=== PATIENT | male | born 1940 | race Caucasian/White ===

== ENCOUNTER → 2016-10-01 | Outpatient (CLI) | payer MEDICARE, BC ==
[2016-10-01 09:30] LABS: ALT 33 U/L (21-72); AST 17 U/L (17-59); Cholesterol 157 mg/dL (<200); HDL Cholesterol 39 mg/dL (40-60); Triglycerides 120 mg/dL (<150)
== END | disposition home or self-care (01) ==
LOC: LABWHC1 08:36
PROVIDERS: ATTEND Internal Medicine Interventional Cardiology
DX: E78.2 Mixed hyperlipidemia (principal)
CPT/HCPCS: 36415; 80061; 84450; 84460

== ENCOUNTER 2016-10-18 06:57 | Emergency (ER) | payer MEDICARE, BC ==
[2016-10-18 07:33] VITALS: PULSE 50; RESP 18
--- NOTE | 2016-10-18 08:18 | ED ---
General Adult HPI - General Chief complaint: Recheck/Abnormal Lab/Rx Stated complaint: Hypertension/Dental Pain? Time Seen by Provider: 10/18/16 07:13 Source: patient, RN notes reviewed, old records reviewed Mode of arrival: ambulatory Limitations: no limitations - History of Present Illness Initial comments: This is a 76-year-old male out of the ER for evaluation of elevated blood pressure as well as some dental pain is been dealing with. Patient does have history of blood pressure and did take his blood pressure medications prior to emergency room arrival. Patient denies headache chest pain or shortness of breath. Denies abdominal pain. Patient states he has not been on a pen pain medications and has been on recent antibiotics for dental pain. Patient did recently of a tooth extracted and states he does get chronic dental infections. Patient was anxious this morning when his blood pressure was elevated and he did go take his medications than take his blood pressure again at a family members of nose was elevated again and then decided to come to the hospital. Again otherwise asymptomatic aside from anxiety. - Related Data Home Medications Medication Instructions Recorded Confirmed Aspirin [Adult Low Dose Aspirin EC] 81 mg PO 10/18/16 10/18/16 Atenolol 25 mg PO 10/18/16 Rosuvastatin Calcium 5 mg PO 10/18/16 Previous Rx's Medication Instructions Recorded Clindamycin [Cleocin] 150 mg PO Q6H #28 capsule 10/18/16 Allergies Allergy/AdvReac Type Severity Reaction Status Date / Time No Known Allergies Allergy Verified 10/18/16 07:05 Review of Systems ROS Statement: Those systems with pertinent positive or pertinent negative responses have been documented in the HPI. ROS Other: All systems not noted in ROS Statement are negative. Past Medical History Past Medical History: Hypertension History of Any Multi-Drug Resistant Organisms: None Reported Past Surgical History: Pacemaker Past Psychological History: No Psychological Hx Reported Smoking Status: Former smoker Past Alcohol Use History: None Reported Past Drug Use History: None Reported General Exam Limitations: no limitations General appearance: alert, in no apparent distress Head exam: Present: atraumatic, normocephalic, normal inspection Eye exam: Present: normal appearance, PERRL, EOMI. Absent: scleral icterus, conjunctival injection, periorbital swelling ENT exam: Present: normal exam, mucous membranes moist Neck exam: Present: normal inspection. Absent: tenderness, meningismus, lymphadenopathy Respiratory exam: Present: normal lung sounds bilaterally. Absent: respiratory distress, wheezes, rales, rhonchi, stridor Cardiovascular Exam: Present: regular rate, normal rhythm, normal heart sounds. Absent: systolic murmur, diastolic murmur, rubs, gallop, clicks GI/Abdominal exam: Present: soft, normal bowel sounds. Absent: distended, tenderness, guarding, rebound, rigid Extremities exam: Present: normal inspection, full ROM, normal capillary refill. Absent: tenderness, pedal edema, joint swelling, calf tenderness Back exam: Present: normal inspection Neurological exam: Present: alert, oriented X3, CN II-XII intact Psychiatric exam: Present: normal affect, normal mood Skin exam: Present: warm, dry, intact, normal color. 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 ] Respiratory 20 18 18 Rate Blood Pressure 172/81 150/76 148/76 O2 Sat by Pulse 98 99 98 Oximetry - Reevaluation(s) Reevaluation #1: 10/18/16 09:00 Blood pressure was removed resolved upon presentation to emergency room with no intervention Medical Decision Making - Medical Decision Making 76 noting here for evaluation of hypertension dental infection, will treat with antibiotics, patient's vital signs are now normal and stable and was without complaint, patient can be discharged home Disposition Clinical Impression: Hypertension, Pain due to dental caries Disposition: HOME SELF-CARE Condition: Good Instructions: Hypertension (ED), Toothache (ED), Dental Caries (ED) Prescriptions: Clindamycin [Cleocin] 150 mg PO Q6H #28 capsule Referrals: Baljinder Smiley MD [Primary Care Provider] - 1-2 days
[2016-10-18 08:29] VITALS: BP 148/76; TEMP 98
== END 2016-10-18 08:29 | disposition home or self-care (01) ==
LOC: EC 06:57
DX: K08.89 Other specified disorders of teeth and supporting structures (principal); I10 Essential (primary) hypertension; K02.9 Dental caries, unspecified; Z95.0 Presence of cardiac pacemaker; Z87.891 Personal history of nicotine dependence; Z79.899 Other long term (current) drug therapy; Z79.82 Long term (current) use of aspirin
CPT/HCPCS: 99283

== ENCOUNTER 2017-03-01 19:43 | Emergency (ER) | payer MEDICARE, BC ==
[2017-03-01 19:50] VITALS: RESP 16
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
--- NOTE | 2017-03-01 20:30 | CT ---
EXAMINATION TYPE: CT brain wo con DATE OF EXAM: 03/01/2017 COMPARISON: NONE HISTORY: Fall with head injury today. CT DLP: 990.4 mGycm Automated exposure control for dose reduction was used. FINDINGS: There is some cerebral cortical atrophy. There is no mass effect nor midline shift. There is no sign of intracranial hemorrhage. There is mild hypodensity in the white matter in both posterior parietal lobes. Calvarium is intact. IMPRESSION: CEREBRAL ATROPHY AND MILD CHRONIC SMALL VESSEL ISCHEMIA. NO ACUTE INTRACRANIAL ABNORMALITY.
--- NOTE | 2017-03-01 20:31 | XR ---
EXAMINATION TYPE: XR shoulder complete RT DATE OF EXAM: 03/01/2017 COMPARISON: NONE HISTORY: Shoulder pain TECHNIQUE: 3 views FINDINGS: I see no fracture nor dislocation. Joint spaces are normal. There are no pathologic calcifi cations. IMPRESSION: Negative right shoulder exam
[2017-03-01 20:42] VITALS: BP 149/72; PULSE 90; TEMP 98.4
== END 2017-03-01 20:42 | disposition home or self-care (01) ==
LOC: EC 19:43
DX: S43.401A Unspecified sprain of right shoulder joint, initial encounter (principal); S09.90XA Unspecified injury of head, initial encounter; S80.811A Abrasion, right lower leg, initial encounter; I10 Essential (primary) hypertension; Z87.891 Personal history of nicotine dependence; Z79.82 Long term (current) use of aspirin; Z79.899 Other long term (current) drug therapy; V00.831A Fall from motorized mobility scooter, initial encounter; Y92.410 Unspecified street and highway as the place of occurrence of the external cause
CPT/HCPCS: 70450; 99284

== ENCOUNTER 2018-08-28 21:03 | Emergency (ER) | payer MEDICARE, BC ==
[2018-08-28] MEDS ORDERED: NITROGLYCERIN SL TABS 0.4 MG TAB SUBLINGUAL STA (21:34)
[2018-08-28] MEDS ORDERED: GLUCAGON 1 MG/ML VIAL IVP STA (21:34)
--- NOTE | 2018-08-28 21:37 | ED ---
ENT HPI - General Source: patient, RN notes reviewed, old records reviewed Mode of arrival: ambulatory Limitations: no limitations <China Murphy - Last Filed: 08/29/18 14:03> <Arleth Smith - Last Filed: 08/31/18 02:03> - General Chief complaint: ENT Stated complaint: Can't swallow Time Seen by Provider: 08/28/18 21:21 - History of Present Illness Initial comments: Patient is a 78-year-old male presents today with chief complaint of food bolus with that his esophagus. Patient reports that he was eating fish this evening and felt like it was stuck and complains of some substernal pain. Patient reports that he's tried to drink warm water as well as using cough syrup but he continues to vomit. Patient states that he has no difficulty breathing. He also complains of some sinus congestion. Patient states he was seen a few months ago for similar complaint in his symptoms were improved after he received some medication. He has never had an endoscope team retrieve food before. Patient states on Saturday he is scheduled for barium swallow. ( China Murphy) - Related Data Home Medications Medication Instructions Recorded Confirmed Aspirin [Adult Low Dose Aspirin EC] 81 mg PO DAILY 10/18/16 08/28/18 Atenolol 12.5 mg PO DAILY 10/18/16 08/28/18 Lisinopril 40 mg PO DAILY 03/01/17 08/28/18 Rosuvastatin Calcium [Crestor] 5 mg PO SUMOWEFR 03/01/17 08/28/18 Allergies Allergy/AdvReac Type Severity Reaction Status Date / Time peanut Allergy Unknown Verified 08/28/18 21:34 Review of Systems ROS Other: All systems not noted in ROS Statement are negative. <China Murphy - Last Filed: 08/29/18 14:03> ROS Other: All systems not noted in ROS Statement are negative. <Arleth Smith P - Last Filed: 08/31/18 02:03> ROS Statement: Those systems with pertinent positive or pertinent negative responses have been documented in the HPI. Past Medical History Past Medical History: Hypertension History of Any Multi-Drug Resistant Organisms: None Reported Past Surgical History: Pacemaker Past Psychological History: No Psychological Hx Reported Smoking Status: Former smoker Past Alcohol Use History: None Reported Past Drug Use History: None Reported <hCina Murphy - Last Filed: 08/29/18 14:03> General Exam Limitations: no limitations General appearance: alert, in no apparent distress Head exam: Present: atraumatic, normocephalic, normal inspection Eye exam: Present: normal appearance, PERRL, EOMI. Absent: scleral icterus, conjunctival injection, periorbital swelling ENT exam: Present: normal exam, mucous membranes moist Neck exam: Present: normal inspection. Absent: tenderness, meningismus, lymphadenopathy Respiratory exam: Present: normal lung sounds bilaterally. Absent: respiratory distress, wheezes, rales, rhonchi, stridor Cardiovascular Exam: Present: regular rate, normal rhythm, normal heart sounds. Absent: systolic murmur, diastolic murmur, rubs, gallop, clicks GI/Abdominal exam: Present: soft, normal bowel sounds. Absent: distended, tenderness, guarding, rebound, rigid Extremities exam: Present: normal inspection, full ROM, normal capillary refill. Absent: tenderness, pedal edema, joint swelling, calf tenderness Back exam: Present: normal inspection Neurological exam: Present: alert, oriented X3, CN II-XII intact Psychiatric exam: Present: normal affect, normal mood <China Murphy - Last Filed: 08/29/18 14:03> <Arleth Smith - Last Filed: 08/31/18 02:03> - General Exam Comments Initial Comments: 78-year-old male. Alert and oriented. No significant distress. Patient has a spit bucket next to him. (China Murphy) Course <China Murphy - Last Filed: 08/29/18 14:03> <Arleth Smith P - Last Filed: 08/31/18 02:03> Vital Signs 08/28/18 08/28/18 08/29/18 21:15 23:00 00:33 Temperature 98.5 F Pulse Rate 56 L Respiratory 18 Rate Blood Pressure 153/101 133/84 137/86 O2 Sat by Pulse 99 Oximetry 08/29/18 08/29/18 08/29/18 02:18 03:00 04:00 Temperature Pulse Rate Respiratory 18 16 Rate Blood Pressure 134/76 134/76 120/57 O2 Sat by Pulse 97 96 97 Oximetry 08/29/18 08/29/18 05:00 05:50 Temperature 97.6 F Pulse Rate 64 69 Respiratory 16 16 Rate Blood Pressure 142/72 132/68 O2 Sat by Pulse 97 95 Oximetry - Reevaluation(s) Reevaluation #1: 08/28/18 23:58 Is given oral nitro and glucagon. He continues to not be able to hold his secretions and vomiting. (China Murphy) Medical Decision Making <China Murphy - Last Filed: 08/29/18 14:03> <Arleth Smith - Last Filed: 08/31/18 02:03> - Medical Decision Making 78-year-old male presents return today with chief complaint of unable to tolerate secretions and vomiting after ingesting fish. Patient was food stuck in his throat. At this time Patient was given Nitrol and glucagon. After drinking a carbonated beverage she had no improvement continue to vomit. Dr. Smith discussed the case with Dr. Chinchilla and anesthesia. Patient will be held in the emergency department until 7 AM when anesthesia will come to perform the endoscopy. (China Murphy) I personally saw and examined the patient. I reviewed and agree with the mid- level provider findings including all diagnostic interpretations and treatment plans as written unless otherwise stated. Patient care was discussed with Dr. Chinchilla gastroenterology on-call. He recommended continued observation with the plan for endoscopy at 7 AM. I treated the patient with IV morphine and advised him of the plan. Patient was able to sleep throughout some of his visit when I woke him at 5 AM for reevaluation patient was able to drink water without difficulty at this time he feels his obstruction has passed. I updated Dr. Chinchilla. Patient was discharged home with the plan to have his outpatient barium swallow study completed later today. (Arleth Smith) Disposition <China Murphy - Last Filed: 08/29/18 14:03> Is patient prescribed a controlled substance at d/c from ED?: No Time of Disposition: 05:39 <Arleth Smith - Last Filed: 08/31/18 02:03> Clinical Impression: Food impaction of esophagus Disposition: HOME SELF-CARE Condition: Good Instructions: Esophageal Foreign Body (ED), Chronic Dysphagia (DC) Referrals: Baljinder Smiley MD [Primary Care Provider] - 1-2 days
[2018-08-28] MEDS ORDERED: SODIUM CHLORIDE 0.9% 1,000 ML IV SCH (23:45)
[2018-08-28] MEDS ORDERED: MORPHINE SULFATE 4 MG/ML SYRINGE IVP STA (23:50)
[2018-08-28] MEDS ORDERED: ONDANSETRON 4 MG/2 ML VIAL IVP STA (23:50)
[2018-08-29 05:12] VITALS: RESP 16
[2018-08-29 05:52] VITALS: BP 132/68; PULSE 69; TEMP 97.6
== END 2018-08-29 05:50 | disposition home or self-care (01) ==
LOC: EC 21:03
DX: T18.128A Food in esophagus causing other injury, initial encounter (principal); I10 Essential (primary) hypertension; Z87.891 Personal history of nicotine dependence; Z91.010 Allergy to peanuts; Z79.82 Long term (current) use of aspirin; Z79.899 Other long term (current) drug therapy; Z95.0 Presence of cardiac pacemaker
CPT/HCPCS: 99284; 96374; 96375 ×2; 96361 ×6; J2270; J1610; J2405

== ENCOUNTER → 2018-08-29 | Outpatient (CLI) | payer MEDICARE, BC | END | disposition home or self-care (01) | LOC: RADFLWHC 08:44 | PROVIDERS: ATTEND Family Medicine | DX: Z53.9 Procedure and treatment not carried out, unspecified reason (principal) ==

== ENCOUNTER → 2018-09-03 | Outpatient (CLI) | payer MEDICARE, BC ==
--- NOTE | 2018-09-03 12:43 | FL ---
EXAMINATION TYPE: FL barium swallow DATE OF EXAM: 09/03/2018 CLINICAL HISTORY: Dysphagia, globus sensation, TECHNIQUE: A double contrast esophagram is performed utilizing air and barium. A total of 1 minute and 21 seconds of fluoroscopic time was utilized during procedure. 23 fluoroscopic images were saved. COMPARISON: None FINDINGS: The esophagus shows abnormal motility and delayed emptying into the stomach. Tertiary cont ractions are seen throughout the exam. No evidence of hiatal hernia. There is smooth tapering of the distal esophagus with a low-grade nonobstructive stricture just above the gastroesophageal junction c ontributing to the esophageal dysmotility. Mild gastroesophageal reflux was seen during real time per formance of this study. The examination was terminated prematurely secondary to note of laryngeal aspiration. Penetration cou ld not be injected with cough. Discussion with the patient was had a recommendation of speech therapy consultation and video swallow exam. IMPRESSION: 1. Premature examination termination due to laryngeal aspiration. Recommendation is for speech therap y consultation and video swallow exam. 2. 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 3. Mild gastroesophageal reflux to the level of distal third of the esophagus.
== END | disposition home or self-care (01) ==
LOC: RADFLWHC 10:52
PROVIDERS: ATTEND Family Medicine
DX: K22.4 Dyskinesia of esophagus (principal); K21.9 Gastro-esophageal reflux disease without esophagitis; Z88.8 Allergy status to other drugs, medicaments and biological substances
CPT/HCPCS: 74220

== ENCOUNTER 2018-09-12 11:34 | Emergency (ER) | payer MEDICARE, BC ==
--- NOTE | 2018-09-12 12:02 | ED ---
Back Pain HPI - General Chief Complaint: Back Pain/Injury Stated Complaint: fall Time Seen by Provider: 09/12/18 11:45 Source: patient, RN notes reviewed, old records reviewed Limitations: no limitations - History of Present Illness Initial Comments: This is a 78-year-old male the ER status post fall. Patient to perform denies 3 days ago and complaining of back pain bilateral back pain worse on the left side of his back. Patient denies any other traumatic injury no loss of consciousness no blood thinners. Patient denies any neurological injury no loss of bladder or bowel bowel, able to ambulate but the pain is is not improving. A she is taking Motrin at home with no significant relief. Denies any abdominal pain. Again patient is currently amateur MD Complaint: back pain, back injury, fall -: days(s) (4) Similar Symptoms Previously: No Place: home Radiation: none Severity: moderate Severity scale (1-10): 5 Quality: aching Consistency: constant Improves With: immobilization, medication Worsens With: movement, walking Associated Symptoms: denies other symptoms Treatments Prior to Arrival: cold therapy, heat therapy, NSAIDS - Related Data Home Medications Medication Instructions Recorded Confirmed Aspirin [Adult Low Dose Aspirin EC] 81 mg PO DAILY 10/18/16 08/28/18 Atenolol 12.5 mg PO DAILY 10/18/16 08/28/18 Lisinopril 40 mg PO DAILY 03/01/17 08/28/18 Rosuvastatin Calcium [Crestor] 5 mg PO SUMOWEFR 03/01/17 08/28/18 Allergies Allergy/AdvReac Type Severity Reaction Status Date / Time peanut Allergy Unknown Verified 09/12/18 11:42 Review of Systems ROS Statement: Those systems with pertinent positive or pertinent negative responses have been documented in the HPI. ROS Other: All systems not noted in ROS Statement are negative. Past Medical History Past Medical History: Hypertension History of Any Multi-Drug Resistant Organisms: None Reported Past Surgical History: Pacemaker Past Psychological History: No Psychological Hx Reported Smoking Status: Former smoker Past Alcohol Use History: None Reported Past Drug Use History: None Reported General Exam - General Exam Comments Initial Comments: No significant abnormality or central spinal tenderness noted on exam Limitations: no limitations General appearance: alert, in no apparent distress Head exam: Present: atraumatic, normocephalic, normal inspection Eye exam: Present: normal appearance, PERRL, EOMI. Absent: scleral icterus, conjunctival injection, periorbital swelling ENT exam: Present: normal exam, mucous membranes moist Neck exam: Present: normal inspection. Absent: tenderness, meningismus, lymphadenopathy Respiratory exam: Present: normal lung sounds bilaterally. Absent: respiratory distress, wheezes, rales, rhonchi, stridor Cardiovascular Exam: Present: regular rate, normal rhythm, normal heart sounds. Absent: systolic murmur, diastolic murmur, rubs, gallop, clicks GI/Abdominal exam: Present: soft, normal bowel sounds. Absent: distended, tenderness, guarding, rebound, rigid Extremities exam: Present: normal inspection, full ROM, normal capillary refill. Absent: tenderness, pedal edema, joint swelling, calf tenderness Back exam: Present: normal inspection Neurological exam: Present: alert, oriented X3, CN II-XII intact Psychiatric exam: Present: normal affect, normal mood Skin exam: Present: warm, dry, intact, normal color. Absent: rash Course Vital Signs 09/12/18 11:40 Temperature 97.6 F Pulse Rate 85 Respiratory 20 Rate Blood Pressure 151/90 O2 Sat by Pulse 99 Oximetry - Reevaluation(s) Reevaluation #1: 09/12/18 12:44 Medical records reviewed Reevaluation #2: 09/12/18 12:44 Patient's pain is controlled, is able to actively in emergency room Medical Decision Making - Medical Decision Making 78 male the ER status post fall trip and fall with back contusion. No neurological deficit noted on exam. X-ray negative and patient can be discharged home - Radiology Data Radiology results: report reviewed (X-ray lumbosacral spine is negative for acute disease), image reviewed Disposition Clinical Impression: Mechanical back pain, Back contusion, Fall Disposition: HOME SELF-CARE Condition: Good Instructions: Fall Prevention for Older Adults (ED), Acute Low Back Pain (ED) Is patient prescribed a controlled substance at d/c from ED?: No Referrals: Baljinder Smiley MD [Primary Care Provider] - 1-2 days
--- NOTE | 2018-09-12 12:18 | XR ---
EXAMINATION TYPE: XR lumbosacral spine min 4V DATE OF EXAM: 09/12/2018 COMPARISON: None HISTORY: Pain after fall TECHNIQUE: Five-view lumbar spine FINDINGS: There 5 lumbar-type vertebral bodies. Pedicles are intact. Facet degenerative changes are p resent greatest L4-5. Disc heights are preserved. Vertebral body heights are preserved. Minimal spond ylosis is in the lower lumbar spine. Note is made of prior bowel surgery in left upper quadrant. IMPRESSION: 1. No suspicious acute osseous abnormality lumbar spine
[2018-09-12] MEDS ORDERED: Acetaminophen-Codeine 300-30mg TAB PO STA ×2 (12:22→13:08)
[2018-09-12] MEDS ORDERED: ACET/COD 300 MG/30 MG STARTER PACK 6 TAB BTL PO STA (12:22)
[2018-09-12 13:26] VITALS: BP 149/89; PULSE 53; RESP 18; TEMP 98.2
== END 2018-09-12 13:40 | disposition home or self-care (01) ==
LOC: EC 11:34
DX: S30.0XXA Contusion of lower back and pelvis, initial encounter (principal); I10 Essential (primary) hypertension; Z87.891 Personal history of nicotine dependence; Z53.8 Procedure and treatment not carried out for other reasons; Z79.82 Long term (current) use of aspirin; Z79.899 Other long term (current) drug therapy; Z91.010 Allergy to peanuts; Z95.0 Presence of cardiac pacemaker; W01.0XXA Fall on same level from slipping, tripping and stumbling without subsequent striking against object, initial encounter; Y92.009 Unspecified place in unspecified non-institutional (private) residence as the place of occurrence of the external cause
CPT/HCPCS: 72110; 99284

== ENCOUNTER → 2019-07-24 | Outpatient (CLI) | payer MEDICARE, BC ==
--- NOTE | 2019-07-24 12:34 | US ---
EXAMINATION TYPE: US kidneys/renal and bladder DATE OF EXAM: 07/24/2019 COMPARISON: NONE CLINICAL HISTORY: R32 Urinary incontinence. EXAM MEASUREMENTS: Right Kidney: 10.3 x 5.0 x 4.8 cm Left Kidney: 9.1 x 4.7 x 4.1 cm Post Void Residual Volume: 53.1 mL Right Kidney: thinned cortex Left Kidney: thinned cortex Bladder: wnl Bilateral Jets seen: Yes Normal Post Void Residual: 53.1 ml There is no evidence for hydronephrosis at this point in time. Cortical thinning and increased cortic al echogenicity is present bilaterally. No nephrolithiasis is seen. No masses are identified. The u rinary bladder is satisfactorily distended. Prominent adjacent prostate noted image 37. Bilateral ur eteral jets are seen. After voiding residual urine is present with calculated volume just over 50 cc. IMPRESSION: Suspect BPH causing outlet obstruction as there is abnormal post void residual. Findings consistent with chronic medical renal disease noted.
== END | disposition home or self-care (01) ==
LOC: RADUSWWP 12:03
PROVIDERS: ATTEND Family Medicine
DX: R32 Unspecified urinary incontinence (principal); Z88.8 Allergy status to other drugs, medicaments and biological substances
CPT/HCPCS: 76770

== ENCOUNTER 2020-01-15 01:59 | Emergency (ER) | payer BC, MEDICARE ==
[2020-01-15] MEDS ORDERED: SODIUM CHLORIDE 0.9% 500 ML 500 ML IV STA (02:21)
--- NOTE | 2020-01-15 02:36 | ED ---
General Adult HPI - General Chief complaint: Neuro Symptoms/Deficit Stated complaint: Neuro problems Time Seen by Provider: 01/15/20 02:08 Source: patient, family, RN notes reviewed, old records reviewed Mode of arrival: ambulatory Limitations: no limitations - History of Present Illness Initial comments: 79-year-old male presents emergency Department with chief complaint of jerking movements of his head. He states he had 2 episodes where his head seemed to jerk to the side. Each episode lasting just seconds. No pain associated with movement. Denies headache. Denies focal numbness or weakness. Denies chest pain or dyspnea. Denies fever or chills. Denies abdominal pain nausea or vomiting. He states he is quite active and was cutting the lawn today. He states he ate and drank normally. No other complaints. - Related Data Home Medications Medication Instructions Recorded Confirmed Aspirin [Adult Low Dose Aspirin EC] 81 mg PO DAILY 10/18/16 09/12/18 Atenolol 12.5 mg PO DAILY 10/18/16 09/12/18 Lisinopril 40 mg PO DAILY 03/01/17 09/12/18 Rosuvastatin Calcium [Crestor] 5 mg PO SUMOWEFR 03/01/17 09/12/18 Ibuprofen [Motrin Ib] 600 mg PO DAILY 09/12/18 09/12/18 Allergies Allergy/AdvReac Type Severity Reaction Status Date / Time peanut Allergy Unknown Verified 01/15/20 02:11 Review of Systems ROS Statement: Those systems with pertinent positive or pertinent negative responses have been documented in the HPI. ROS Other: All systems not noted in ROS Statement are negative. Past Medical History Past Medical History: Hypertension History of Any Multi-Drug Resistant Organisms: None Reported Past Surgical History: Bowel Resection, Pacemaker Past Psychological History: No Psychological Hx Reported Smoking Status: Former smoker Past Alcohol Use History: None Reported Past Drug Use History: None Reported General Exam Limitations: no limitations General appearance: alert, in no apparent distress Head exam: Present: atraumatic, normocephalic Eye exam: Present: normal appearance, PERRL ENT exam: Present: normal exam Neck exam: Present: normal inspection. Absent: tenderness, meningismus Respiratory exam: Present: normal lung sounds bilaterally. Absent: respiratory distress, wheezes Cardiovascular Exam: Present: regular rate, normal rhythm GI/Abdominal exam: Present: soft. Absent: distended, tenderness, guarding, rebound Extremities exam: Present: normal inspection, normal capillary refill. Absent: pedal edema, calf tenderness Neurological exam: Present: alert, oriented X3, CN II-XII intact, normal gait. Absent: motor sensory deficit Psychiatric exam: Present: normal affect, normal mood Skin exam: Present: warm, dry, intact. Absent: cyanosis, diaphoretic Course Vital Signs 01/15/20 01/15/20 01/15/20 02:03 02:15 02:30 Temperature 97.9 F Pulse Rate 58 L 51 L Respiratory 20 17 16 Rate Blood Pressure 183/92 164/77 O2 Sat by Pulse 100 100 Oximetry 01/15/20 03:00 Temperature Pulse Rate 60 Respiratory 17 Rate Blood Pressure O2 Sat by Pulse Oximetry EKG Findings - EKG Comments: EKG Findings:: EKG: Intermittent pacer spikes, first-degree AV block, LVH, no ST segment elevation, ventricular rate of 60, IL interval 234, QRS duration 76, QTC 422. Repeat EKG obtained at 0 344, atrial paced rhythm with prolonged AV conduction, rate of 58, IL interval prolonged at 258, QRS duration 76, QTC 428, no ST segment elevation. Medical Decision Making - Medical Decision Making 79-year-old male presenting with 2 episodes of head trauma or cutting. Initial blood pressure is elevated otherwise stable vitals. He has a nonfocal neurologic exam. He has a normal CBC with the exception of thrombocytopenia platelets are 100. He has normal electrolytes. Chest x-ray performed negative for acute cardiopulmonary disease. Head CT is negative for intracranial hemorrhage or mass effect. Blood pressure is down trending without treatment in the emergency department. He's feeling good with no further episodes on reevaluation. He does have good outpatient follow-up and will monitor symptoms, he will return with worsening or changing symptoms. - Lab Data Result diagrams: 01/15/20 02:32 01/15/20 02:32 Lab Results 01/15/20 01/15/20 01/15/20 Range/Units 02:32 02:32 02:32 WBC 5.5 (3.8-10.6) k/uL RBC 4.81 (4.30-5.90) m/uL Hgb 14.3 (13.0-17.5) gm/dL Hct 45.5 (39.0-53.0) % MCV 94.4 (80.0-100.0) fL MCH 29.6 (25.0-35.0) pg MCHC 31.4 (31.0-37.0) g/dL RDW 13.1 (11.5-15.5) % Plt Count 103 L (150-450) k/uL Neutrophils % 60 % Lymphocytes % 26 % Monocytes % 7 % Eosinophils % 5 % Basophils % 0 % Neutrophils # 3.3 (1.3-7.7) k/uL Lymphocytes # 1.4 (1.0-4.8) k/uL Monocytes # 0.4 (0-1.0) k/uL Eosinophils # 0.3 (0-0.7) k/uL Basophils # 0.0 (0-0.2) k/uL PT 9.9 (9.0-12.0) sec INR 1.0 (<1.2) APTT 19.3 L (22.0-30.0) sec Sodium 142 (137-145) mmol/L Potassium 4.6 (3.5-5.1) mmol/L Chloride 106 (98-107) mmol/L Carbon Dioxide 25 (22-30) mmol/L Anion Gap 11 mmol/L BUN 26 H (9-20) mg/dL Creatinine 1.25 (0.66-1.25) mg/dL Est GFR (CKD-EPI)AfAm 64 (>60 ml/min/1.73 sqM) Est GFR (CKD-EPI)NonAf 55 (>60 ml/min/1.73 sqM) Glucose 134 H (74-99) mg/dL Calcium 9.9 (8.4-10.2) mg/dL Magnesium 2.3 (1.6-2.3) mg/dL Total Bilirubin 0.5 (0.2-1.3) mg/dL AST 27 (17-59) U/L ALT 18 (4-49) U/L Alkaline Phosphatase 66 (38-126) U/L Total Protein 7.8 (6.3-8.2) g/dL Albumin 4.8 (3.5-5.0) g/dL Disposition Clinical Impression: Myoclonic jerking Disposition: HOME SELF-CARE Condition: Good Instructions (If sedation given, give patient instructions): Spasmodic Torticollis (ED) Is patient prescribed a controlled substance at d/c from ED?: No Referrals: Baljinder Smiley MD [Primary Care Provider] - 1-2 days Time of Disposition: 03:47
[2020-01-15 02:46] LABS: Basophils % (A) 0 %; Eosinophils # (A) 0.3 k/uL (0-0.7); Eosinophils % (A) 5 %; HCT 45.5 % (39.0-53.0); HGB 14.3 gm/dL (13.0-17.5); Lymphocytes # (A) 1.4 k/uL (1.0-4.8); Lymphocytes % (A) 26 %; MCH 29.6 pg (25.0-35.0); MCHC 31.4 g/dL (31.0-37.0); MCV 94.4 fL (80.0-100.0); Mean Platelet Volume 10.8; Monocytes # (A) 0.4 k/uL (0-1.0); Monocytes % (A) 7 %; Neutrophils # (A) 3.3 k/uL (1.3-7.7); Neutrophils % (A) 60 %; Platelet Count 103 k/uL (150-450); RBC 4.81 m/uL (4.30-5.90); RDW 13.1 % (11.5-15.5); WBC 5.5 k/uL (3.8-10.6)
[2020-01-15 02:52] LABS: Albumin 4.8 g/dL (3.5-5.0); Calcium 9.9 mg/dL (8.4-10.2); Total Bilirubin 0.5 mg/dL (0.2-1.3); Total Protein 7.8 g/dL (6.3-8.2)
[2020-01-15 02:57] LABS: Magnesium 2.3 mg/dL (1.6-2.3); Potassium 4.6 mmol/L (3.5-5.1)
[2020-01-15 02:58] LABS: Prothrombin Time 9.9 sec (9.0-12.0)
[2020-01-15 02:59] LABS: Partial Thromboplastin Time 19.3 sec (22.0-30.0)
--- NOTE | 2020-01-15 03:18 | CT ---
EXAMINATION TYPE: CT brain wo con DATE OF EXAM: 01/15/2020 COMPARISON: 03/01/2017 HISTORY: AMS CT DLP: 1080.4 mGycm Automated exposure control for dose reduction was used. Ventricles have normal size. There is no mass effect nor midline shift. There is no sign of intracran ial hemorrhage. The calvarium is intact. There is mild cerebral atrophy. IMPRESSION: Mild atrophy. No acute intracranial abnormality. No change.
--- NOTE | 2020-01-15 03:20 | XR ---
EXAMINATION TYPE: XR chest 2V DATE OF EXAM: 01/15/2020 COMPARISON: NONE HISTORY: Altered mental status TECHNIQUE: 2 views FINDINGS: There is no heart failure nor confluent pneumonic infiltrate. There is left axillary pacema ker. Costophrenic angles are clear. There is small linear density in the lingula left upper lobe. IMPRESSION: Minimal scarring or subsegmental atelectasis in the lingula. Normal heart.
[2020-01-15 04:05] VITALS: BP 136/77; PULSE 59; RESP 18; TEMP 97.4
== END 2020-01-15 04:05 | disposition home or self-care (01) ==
LOC: EC 01:59
DX: G25.3 Myoclonus (principal); D69.6 Thrombocytopenia, unspecified; I10 Essential (primary) hypertension; Z79.82 Long term (current) use of aspirin; Z79.899 Other long term (current) drug therapy; Z91.030 Bee allergy status; Z95.0 Presence of cardiac pacemaker; Z87.891 Personal history of nicotine dependence
CPT/HCPCS: 36415; 70450; 71046; 80053; 83735; 85025; 85610; 85730; 93005; 96360; 99285

== ENCOUNTER 2020-05-12 00:21 | Emergency (ER) | payer MEDICARE ==
[2020-05-12 00:26] VITALS: RESP 18
--- NOTE | 2020-05-12 00:45 | ED ---
ENT HPI - General Chief complaint: ENT Stated complaint: food stuck in chest Time Seen by Provider: 05/12/20 00:26 Source: patient, RN notes reviewed, old records reviewed Mode of arrival: ambulatory - History of Present Illness Initial comments: This is a 71-year-old male DF for evaluation feels like he may have esophageal foreign body. Patient has severe pain after eating some chicken tonight. Patient has had similar issue before and was told that he may need to have a dilation of esophagus at some point today. Otherwise patient has no travel history no sick contacts no new complaints no shortness of breath. Patient does admit to severe anxiety with inability to swallow MD complaint: difficulty swallowing, foreign body -: hour(s) Severity: severe Severity scale (1-10): 8 Improves with: none Worsens with: swallowing Associated Symptoms: pain with swallowing - Related Data Home Medications Medication Instructions Recorded Confirmed Aspirin [Adult Low Dose Aspirin EC] 81 mg PO DAILY 10/18/16 09/12/18 atenoloL [Atenolol] 12.5 mg PO DAILY 10/18/16 09/12/18 Rosuvastatin Calcium [Crestor] 5 mg PO SUMOWEFR 03/01/17 09/12/18 lisinopriL 40 mg PO DAILY 03/01/17 09/12/18 Ibuprofen [Motrin Ib] 600 mg PO DAILY 09/12/18 09/12/18 Allergies Allergy/AdvReac Type Severity Reaction Status Date / Time peanut Allergy Unknown Verified 05/12/20 00:26 Review of Systems ROS Statement: Those systems with pertinent positive or pertinent negative responses have been documented in the HPI. ROS Other: All systems not noted in ROS Statement are negative. Past Medical History Past Medical History: Hypertension History of Any Multi-Drug Resistant Organisms: None Reported Past Surgical History: Bowel Resection, Pacemaker Past Psychological History: No Psychological Hx Reported Smoking Status: Never smoker Past Alcohol Use History: None Reported Past Drug Use History: None Reported General Exam General appearance: alert, in no apparent distress, anxious Head exam: Present: atraumatic, normocephalic, normal inspection Eye exam: Present: normal appearance, PERRL, EOMI. Absent: scleral icterus, conjunctival injection, periorbital swelling ENT exam: Present: normal exam, mucous membranes moist Neck exam: Present: normal inspection. Absent: tenderness, meningismus, lymphadenopathy Respiratory exam: Present: normal lung sounds bilaterally. Absent: respiratory distress, wheezes, rales, rhonchi, stridor Cardiovascular Exam: Present: regular rate, normal rhythm, normal heart sounds. Absent: systolic murmur, diastolic murmur, rubs, gallop, clicks GI/Abdominal exam: Present: soft, normal bowel sounds. Absent: distended, tenderness, guarding, rebound, rigid Extremities exam: Present: normal inspection, full ROM, normal capillary refill. Absent: tenderness, pedal edema, joint swelling, calf tenderness Back exam: Present: normal inspection Neurological exam: Present: alert, oriented X3, CN II-XII intact Psychiatric exam: Present: normal affect, normal mood Skin exam: Present: warm, dry, intact, normal color. Absent: rash Course Vital Signs 05/12/20 05/12/20 00:23 01:20 Temperature 98 F Pulse Rate 72 84 Respiratory 18 18 Rate Blood Pressure 158/90 142/80 O2 Sat by Pulse 99 98 Oximetry - Reevaluation(s) Reevaluation #1: 05/12/20 02:55 Medical records reviewed Reevaluation #2: 05/12/20 02:55 Patient symptoms are improved Reevaluation #3: 05/12/20 03:19 At this point patient's able tolerate oral intake without difficulty Medical Decision Making - Medical Decision Making 79 male to the ED for evaluation of esophageal foreign body chicken, patient did have some vomiting type episodes here in the ER currently able to eat and drink without difficulty Disposition Clinical Impression: Esophageal foreign body Disposition: HOME SELF-CARE Condition: Good Instructions (If sedation given, give patient instructions): Esophageal Foreign Body (ED) Is patient prescribed a controlled substance at d/c from ED?: No Referrals: Baljinder Smiley MD [Primary Care Provider] - 1-2 days
[2020-05-12] MEDS ORDERED: DIAZEPAM 5 MG/ML 2 ML INJ IVP STA (01:00)
[2020-05-12] MEDS ORDERED: GLUCAGON 1 MG/ML VIAL IVP STA (01:00)
[2020-05-12] MEDS ORDERED: SODIUM CHLORIDE 0.9% 1,000 ML IV STA (01:00)
[2020-05-12] MEDS ORDERED: ONDANSETRON 4 MG/2 ML VIAL IVP STA (01:00)
[2020-05-12] MEDS ORDERED: NITROGLYCERIN SL TABS 0.4 MG TAB SUBLINGUAL SCH (01:15)
[2020-05-12 04:17] VITALS: BP 120/62; PULSE 68; TEMP 98.9
== END 2020-05-12 03:28 | disposition home or self-care (01) ==
LOC: EC 00:21
DX: T18.128A Food in esophagus causing other injury, initial encounter (principal); I10 Essential (primary) hypertension; Z79.82 Long term (current) use of aspirin; Z79.899 Other long term (current) drug therapy; Z95.0 Presence of cardiac pacemaker; Z91.010 Allergy to peanuts; X58.XXXA Exposure to other specified factors, initial encounter
CPT/HCPCS: 99283; 96374; 96375 ×2; 96361 ×2; J1610; J3360; J2405

== ENCOUNTER 2020-12-19 20:41 | Observation (INO) | payer MEDICARE ==
[2020-12-19] MEDS ORDERED: DIAZEPAM 5 MG/ML 2 ML INJ IVP STA (21:03)
[2020-12-19] MEDS ORDERED: NITROGLYCERIN SL TABS 0.4 MG TAB SUBLINGUAL STA (21:03)
[2020-12-19] MEDS ORDERED: METOCLOPRAMIDE 5 MG/ML 2 ML VIAL IVP STA (21:04)
[2020-12-19] MEDS ORDERED: GLUCAGON 1 MG/ML VIAL IVP STA (21:04)
--- NOTE | 2020-12-19 21:13 | ED ---
General Adult HPI - General Chief complaint: ENT Stated complaint: Chicken stuck in throat Time Seen by Provider: 12/19/20 20:54 Source: patient, RN notes reviewed Mode of arrival: ambulatory Limitations: no limitations - History of Present Illness Initial comments: 80-year-old male with a past medical history of hypertension presents for esophageal foreign body. Patient states about 4 hours ago he was eating chicken and got it lodged in his throat. Patient states that he is not able to keep down any fluids. States that he is vomiting. Patient states this has happened before and he got IV meds in the ER which helped. He did not follow-up with GI. Patient denies any difficulty breathing.Patient has no other complaints at this time including shortness of breath, chest pain, abdominal pain, headache, or visual changes. - Related Data Home Medications Medication Instructions Recorded Confirmed Aspirin [Adult Low Dose Aspirin EC] 81 mg PO DAILY 10/18/16 09/12/18 atenoloL [Atenolol] 12.5 mg PO DAILY 10/18/16 09/12/18 Rosuvastatin Calcium [Crestor] 5 mg PO SUMOWEFR 03/01/17 09/12/18 lisinopriL 40 mg PO DAILY 03/01/17 09/12/18 Ibuprofen [Motrin Ib] 600 mg PO DAILY 09/12/18 09/12/18 Allergies Allergy/AdvReac Type Severity Reaction Status Date / Time peanut Allergy Unknown Verified 12/19/20 20:45 Review of Systems ROS Statement: Those systems with pertinent positive or pertinent negative responses have been documented in the HPI. ROS Other: All systems not noted in ROS Statement are negative. Past Medical History Past Medical History: Hypertension History of Any Multi-Drug Resistant Organisms: None Reported Past Surgical History: Bowel Resection, Pacemaker Past Psychological History: No Psychological Hx Reported Smoking Status: Never smoker Past Alcohol Use History: None Reported Past Drug Use History: None Reported General Exam Limitations: no limitations General appearance: alert, in no apparent distress Head exam: Present: atraumatic, normocephalic, normal inspection Eye exam: Present: normal appearance, PERRL, EOMI. Absent: scleral icterus, conjunctival injection, periorbital swelling ENT exam: Present: normal exam, mucous membranes moist Neck exam: Present: normal inspection. Absent: tenderness, meningismus, lymphadenopathy Respiratory exam: Present: normal lung sounds bilaterally. Absent: respiratory distress, wheezes, rales, rhonchi, stridor Cardiovascular Exam: Present: regular rate, normal rhythm, normal heart sounds GI/Abdominal exam: Present: soft, normal bowel sounds. Absent: distended, tenderness, guarding, rebound, rigid Course Vital Signs 12/19/20 12/19/20 12/19/20 20:43 21:29 22:30 Temperature 97.9 F Pulse Rate 70 68 70 Respiratory 20 18 18 Rate Blood Pressure 148/84 147/86 123/65 O2 Sat by Pulse 96 97 98 Oximetry Medical Decision Making - Medical Decision Making Patient was given several different medications including nitro, Valium, Reglan, and glucagon. He is still unable to tolerate fluids. Unable to drink. I did discuss this case with Dr. Duong who will see him in the morning for endo. She does request medicine admit, Dr. Smiley was notified. Disposition Clinical Impression: Food impaction of esophagus Disposition: ADMITTED IP TO THIS HOSP Is patient prescribed a controlled substance at d/c from ED?: No Referrals: Baljinder Smiley MD [Primary Care Provider] - 1-2 days Time of Disposition: 23:01
[2020-12-19] MEDS ORDERED: NALOXONE 0.4 MG/ML 1 ML VIAL IV PRN (22:57)
[2020-12-19] MEDS ORDERED: SODIUM CHLORIDE 0.9% 1,000 ML IV SCH (23:00)
[2020-12-19 23:31] LABS: Basophils % (A) 0 %; Eosinophils # (A) 0.1 k/uL (0-0.7); Eosinophils % (A) 1 %; HCT 41.5 % (39.0-53.0); HGB 13.8 gm/dL (13.0-17.5); Lymphocytes # (A) 0.7 k/uL (1.0-4.8); Lymphocytes % (A) 6 %; MCH 31.2 pg (25.0-35.0); MCHC 33.3 g/dL (31.0-37.0); MCV 93.7 fL (80.0-100.0); Mean Platelet Volume 9.8; Monocytes # (A) 0.5 k/uL (0-1.0); Monocytes % (A) 5 %; Neutrophils # (A) 9.4 k/uL (1.3-7.7); Neutrophils % (A) 87 %; Platelet Count 112 k/uL (150-450); RBC 4.43 m/uL (4.30-5.90); RDW 12.8 % (11.5-15.5); WBC 10.8 k/uL (3.8-10.6)
[2020-12-19 23:46] LABS: Calcium 8.8 mg/dL (8.4-10.2); Total Bilirubin 0.9 mg/dL (0.2-1.3)
[2020-12-20 00:22] LABS: Albumin 4.2 g/dL (3.5-5.0); Potassium 5.3 mmol/L (3.5-5.1); Total Protein 6.9 g/dL (6.3-8.2)
[2020-12-20] MEDS ORDERED: PROPOFOL 10 MG/ML 20 ML VIAL IV ONE (07:06)
[2020-12-20] MEDS ORDERED: LIDOCAINE 1% INJ 10MG/ML (20 ML MDV) ONE (07:06)
[2020-12-20] MEDS ORDERED: IV FLUID CONTINUATION 1,000 ML IV ONE (07:07)
--- NOTE | 2020-12-20 07:27 | P.PCN ---
Date of Procedure: 12/20/20 Procedure(s) Performed: BRIEF HISTORY: Patient is a 80-year-old, pleasant, white male came to the emergency room last night with food impaction. He had a similar episode about a year ago that spontaneously resolved. He has intermittent dysphagia for the last 2 years duration. No history of GERD. He scheduled for an upper endoscopy for foreign body removal.. PROCEDURE PERFORMED: Esophagogastroduodenoscopy with foreign body removal and dilation. PREOPERATIVE DIAGNOSIS: Acute food impaction. IV sedation per anesthesia. PROCEDURE: After informed consent was obtained, the patient was brought into the endoscopy unit. IV sedation was administered by Anesthesia under continuous monitoring. Initially the Olympus GIF-140 video endoscope was inserted into the mouth. Esophagus intubated without any difficulty. It was gradually advanced into the mid esophagus with a food bolus noted. Using a snare the food bolus was removed along with the scope out of the mouth. Following this the esophagus was intubated without any difficulty stomach and duodenum and carefully examined. There was evidence of previous gastric surgery with Billroth II anastomosis that appeared normal. l. The scope at this time was withdrawn to the stomach, adequately insufflated with air, and upon careful examination, mucosa of the antrum, body, cardia and the fundus appeared normal. The scope was then withdrawn into the esophagus. The GE junction was located at 39 cm from the incisors. There was a small hiatal hernia noted. There were multiple superficial mucosal rings noted in the distal esophagus with early esophageal stricture did not impede the passage of the scope. At this time proceed with balloon dilation using 15 mm TTS balloon and dilated for 60 seconds. Following this there was a superficial mucosal tear was oozing identified and hence further dilation was not done. Also there were few erosions noted in the distal esophagus consistent with LA grade B reflux esophagitis. The esophagus appeared normal. The patient tolerated the procedure well. IMPRESSION: 1. Distal esophageal food bolus status post removal. 2. Mucosal rings noted in the distal esophagus with esophageal stricture status post balloon dilation using 15 mm TTS balloon as described above 3. Small hiatal hernia 4. Evidence of previous gastric surgery with Billroth II anastomosis. RECOMMENDATIONS: The findings of this examination were discussed with the patient. He'll be started on a clear liquid diet for breakfast and can be advanced to a soft diet for lunch. Continue with Protonix 40 mg daily . Patient admitted discharged home today with outpatient follow-up in 2-3 weeks
[2020-12-20] MEDS ORDERED: PANTOPRAZOLE 40 MG TABLET PO SCH (07:30)
--- NOTE | 2020-12-20 08:51 | CONS ---
CONSULTATION DATE OF DICTATION: December 20, 2020 REASON FOR CONSULTATION: Acute food impaction. The patient is a 80-year-old pleasant white male who came to the emergency room last night complaining of esophageal food impaction. He was eating chicken at 5 p.m. and could not swallow any further. He had a similar episode that happened about a year ago. He came to the ER, was given glucagon and it resolved. He has intermittent dysphagia to solids for the last 3 years and had 3 episodes so far. None of them requiring any endoscopic intervention. He denies any heartburn. No abdominal pain. No nausea or vomiting. No history of gastroesophageal reflux symptoms. PAST MEDICAL HISTORY: Significant for hypertension and hypercholesteremia. MEDICATIONS AT HOME: Atenolol, Crestor, lisinopril, Motrin, aspirin. ALLERGIES: PEANUT. SOCIAL HISTORY: No smoking. No alcohol use. PAST SURGICAL HISTORY: Pacemaker implantation and bowel resection. FAMILY HISTORY: Unremarkable. REVIEW OF SYSTEMS: CARDIOPULMONARY: He denies any chest pain or shortness of breath. GENITOURINARY: No dysuria or hematuria. MUSCULOSKELETAL: Unremarkable. SKIN: Unremarkable. ENDOCRINE: Unremarkable. PSYCHIATRIC: Unremarkable. NEUROLOGY: Unremarkable. ENT/VISION: Unremarkable. CONSTITUTIONAL: No recent weight loss. No fever, chills, night sweats. PHYSICAL EXAMINATION: He appears comfortable. Vital signs are stable. Blood pressure 142/75, pulse rate 52, temperature 97.3. HEENT: Examination is unremarkable. Conjunctivae pink. Sclerae anicteric. Oral cavity, no lesions. NECK: No JVD or lymph node enlargement. CHEST: Was clear to auscultation. HEART: Regular rate and rhythm. ABDOMEN: Soft. Bowel sounds are positive. No organomegaly. EXTREMITIES: No pedal edema. NEURO: He is alert and oriented x3. No focal deficits. LABS: WBC 10.8, hemoglobin 13.8, and platelets are 112. Potassium was 5.3. BUN 28, creatinine 1.20. Coronavirus PCR is negative. IMPRESSION: 1. Acute food impaction. The patient was eating chicken for dinner last night and could not swallow any further. He came to the emergency room late last night. He was admitted for observation and we are consulted for EGD this morning. 2. Intermittent dysphagia to solids. 3. History of hypertension and hyperlipidemia. RECOMMENDATIONS: Proceed with EGD with foreign body removal this morning. The patient understands risks, benefits and complications of the procedure. Thank you for this consultation. MMODL / IJN: [id number] /
[2020-12-20 14:18] VITALS: BP 124/78; PULSE 60; RESP 18; TEMP 98.1
--- NOTE | 2020-12-20 22:27 | HP ---
HISTORY AND PHYSICAL CHIEF COMPLAINT: Chest discomfort. HISTORY OF PRESENT ILLNESS: This is another admission for this 80-year-old white male. He has been in fairly good health. He was eating some chicken which became lodged in his esophagus and came to the emergency room when it would not pass. REVIEW OF SYSTEMS: He has had no headache, chest pain, hemoptysis, shortness of breath, abdominal pain, diarrhea, renal failure, diabetes, etc. Past medical history, family history, and personal and social histories reveal that he is ALLERGIC TO STATINS. Current medications include tamsulosin, simvastatin, lisinopril, atenolol, and aspirin. He has had a prior history of heart disease with myocardial infarction in 2006 and he has a pacemaker. He used to smoke but does not any longer. PHYSICAL EXAMINATION: Blood pressure is 138/86 with a pulse of 88, respirations of 17. He is afebrile. In general, appeared to be in no acute distress. Skin color is normal. Skin is warm, dry. Lymph nodes are not enlarged. Head, ears, eyes, nose, mouth and throat were normal. Neck veins not distended. Thyroid is not enlarged. Chest is clear. Cardiac exam is normal. Abdomen is soft and nontender. Extremities are normal. Neurologically, he is intact. IMPRESSION: He is admitted to the hospital with diagnoses: 1. Impacted foreign body in the esophagus. 2. History of hypertension. 3. History of coronary artery disease. PLAN: 1. Bedrest. 2. IV fluids. 3. N.p.o. 4. GI consult. MMODL / SHANIAN: [id number] /
--- NOTE | 2020-12-20 23:18 | DS ---
DISCHARGE SUMMARY CHIEF COMPLAINT: Foreign body in the esophagus HISTORY OF PRESENT ILLNESS AND PHYSICAL EXAMINATION: Details of this man's history and physical can be found in the initial workup. LABORATORY STUDIES: While he was in the hospital, he had laboratory studies, details of which can be found in the laboratory section of his chart. COURSE IN THE HOSPITAL: After admission, he was placed on bedrest, started his fluids and kept n.p.o. In the morning, he was taken to the endoscopy suite where the foreign body was removed by Gastroenterology. He is awake, alert, and eating. That afternoon it was felt that he could be discharged. He will be going home on his usual activity, diet, medication, and he will be contacted by my office after discharge. FINAL DIAGNOSES: 1. Foreign body impacted in the esophagus. 2. History of hypertension. OPERATIONS: Remove foreign body from the esophagus with endoscopy. CONSULTATIONS: Gastroenterology. MMTIMMY / LASHONDA: [id number] /
== END 2020-12-20 14:30 | disposition home or self-care (01) ==
LOC: EC 20:41 → 6NMEDSUR 22:37 → 1SOBS 23:30 → 6NMEDSUR 12-20 12:43
PROVIDERS: ADMIT Family Medicine; ATTEND Family Medicine
DX: T18.128A Food in esophagus causing other injury, initial encounter (principal); K22.2 Esophageal obstruction; K44.9 Diaphragmatic hernia without obstruction or gangrene; I10 Essential (primary) hypertension; E78.00 Pure hypercholesterolemia, unspecified; I25.10 Atherosclerotic heart disease of native coronary artery without angina pectoris; N40.0 Benign prostatic hyperplasia without lower urinary tract symptoms; E78.5 Hyperlipidemia, unspecified; Z20.822 Contact with and (suspected) exposure to COVID-19; Z79.82 Long term (current) use of aspirin; Z79.1 Long term (current) use of non-steroidal anti-inflammatories (NSAID); Z79.899 Other long term (current) drug therapy; Z91.010 Allergy to peanuts; Z90.49 Acquired absence of other specified parts of digestive tract; Z95.0 Presence of cardiac pacemaker; I25.2 Old myocardial infarction; Z88.8 Allergy status to other drugs, medicaments and biological substances; Z87.891 Personal history of nicotine dependence
CPT/HCPCS: 96374; 96375; 99284; 80053; 85025; 87636; 43247; 43249; G0378 ×3; J1610; J2765; J3360; J2001; J2704; C1726

== ENCOUNTER 2021-03-11 15:26 | Emergency (ER) | payer MEDICARE ==
[2021-03-11 15:31] VITALS: BP 153/83; PULSE 84; RESP 18; TEMP 97.5
--- NOTE | 2021-03-11 16:04 | ED ---
General Adult HPI - General Source: patient, RN notes reviewed Mode of arrival: ambulatory Limitations: no limitations <Aaron Urrutia - Last Filed: 03/11/21 16:05> <Lillie Burris - Last Filed: 03/12/21 23:55> - General Chief complaint: Allergic Reaction Stated complaint: possible skin irritation Time Seen by Provider: 03/11/21 15:32 - History of Present Illness Initial comments: 80-year-old male presents to the emergency room for a chief complaint of skin exposure to from an plus. Patient states he was putting frontline plus for fleas on his cat. States some of the packet spilled onto his pants and went through to his leg. Patient was concerned this could be toxic. Patient presented to the emergency room. Patient denies any symptoms. Denies any rash. Denies dizziness, shortness of breath. Patient to make sure he didn't have to do anything else.Patient has no other complaints at this time including shortness of breath, chest pain, abdominal pain, nausea or vomiting, headache, or visual changes. (Aaron Urrutia) - Related Data Home Medications Medication Instructions Recorded Confirmed Aspirin [Adult Low Dose Aspirin EC] 81 mg PO DAILY 10/18/16 12/19/20 atenoloL [Atenolol] 25 mg PO DAILY 10/18/16 12/19/20 Rosuvastatin Calcium [Crestor] 5 mg PO SUMOWEFR 03/01/17 12/19/20 lisinopriL 40 mg PO DAILY 03/01/17 12/19/20 Tamsulosin HCl [Flomax] 0.4 mg PO DAILY 12/19/20 12/19/20 Allergies Allergy/AdvReac Type Severity Reaction Status Date / Time peanut Allergy Unknown Verified 03/11/21 15:30 Review of Systems ROS Other: All systems not noted in ROS Statement are negative. <Aaron Urrutia - Last Filed: 03/11/21 16:05> ROS Other: All systems not noted in ROS Statement are negative. <Lillie Burris - Last Filed: 03/12/21 23:55> ROS Statement: Those systems with pertinent positive or pertinent negative responses have been documented in the HPI. Past Medical History Past Medical History: Chest Pain / Angina, Eye Disorder, GERD/Reflux, Hearing Disorder / Deafness, Hyperlipidemia, Hypertension, Osteoarthritis (OA), Prostate Disorder Additional Past Medical History / Comment(s): 12/20/20 EGD showed small hiatal hernia/esophageal stricture/esophagitis, dysphagia, pyloric stenosis/surgery, BPH, bilateral hand arthritis, L ear tinnitis, bilateral eye surgery for glaucoma. History of Any Multi-Drug Resistant Organisms: None Reported Past Surgical History: Bowel Resection, Heart Catheterization With Stent, Pacemaker Additional Past Surgical History / Comment(s): 12/20/20 EGD for FB removal, bowel surgery as infant for rerouting, surgery for pyloric stenosis pt states as an adult, colonoscopies, 2007 PCI with stent, 2018 pacer insertion at [facility], bilateral eye surgery for glaucoma. Past Anesthesia/Blood Transfusion Reactions: No Reported Reaction Date of Last Stent Placement:: 2007 Type of Cardiac Device: Permanent Pacemaker Device Placement Date:: 2017 Past Psychological History: No Psychological Hx Reported Smoking Status: Former smoker Past Alcohol Use History: None Reported Past Drug Use History: None Reported - Past Family History Mother Family Medical History: Myocardial Infarction ([place]) Additional Family Medical History / Comment(s): Mother of a [place] in her 70s. Father Family Medical History: Cancer Additional Family Medical History / Comment(s): Father of lung cancer. He was a smoker. <Aaron Urrutia P - Last Filed: 03/11/21 16:05> General Exam Limitations: no limitations General appearance: alert, in no apparent distress Head exam: Present: atraumatic, normocephalic, normal inspection Eye exam: Present: normal appearance, PERRL, EOMI. Absent: scleral icterus, conjunctival injection, periorbital swelling ENT exam: Present: normal exam, mucous membranes moist Neck exam: Present: normal inspection, full ROM. Absent: tenderness, meningismus, lymphadenopathy Respiratory exam: Present: normal lung sounds bilaterally. Absent: respiratory distress, wheezes, rales, rhonchi, stridor Cardiovascular Exam: Present: regular rate, normal rhythm, normal heart sounds. Absent: systolic murmur, diastolic murmur, rubs, gallop, clicks Extremities exam: Present: other (Skin exam is normal. There is no rash or abrasion.) <Aaron Urrutia P - Last Filed: 03/11/21 16:05> Course Vital Signs 03/11/21 15:27 Temperature 97.5 F L Pulse Rate 84 Respiratory 18 Rate Blood Pressure 153/83 O2 Sat by Pulse 99 Oximetry Medical Decision Making <Aaron Urrutia - Last Filed: 03/11/21 16:05> <Lillie Burris - Last Filed: 03/12/21 23:55> - Medical Decision Making Patient is well-appearing. Vitals are stable. There are no skin findings on exam. Patient has no symptoms whatsoever. At this time patient is stable for dc home. He can return for any worsening symptoms and is advised to do so. (Aaron Urrutia) I was available for consultation in the emergency department. The history and physical exam were done by the midlevel provider. I was consulted for this patients care. I reviewed the case with the midlevel provider and based on their presentation of the patient, I agree with the assessment, medical decision making and plan of care as documented. Chart was dictated using [employer] dictation software. Attempts were made to correct any dictation errors however some typographical errors may persist. (Lillie Burris) Disposition Is patient prescribed a controlled substance at d/c from ED?: No Time of Disposition: 16:03 <Aaron Urrutia - Last Filed: 03/11/21 16:05> <Lillie Burris - Last Filed: 03/12/21 23:55> Clinical Impression: Normal exam Narrative: exposure of skin to frontline plus (Aaron Urrutia) Disposition: HOME SELF-CARE Condition: Good Instructions (If sedation given, give patient instructions): Acute Rash (ED) Additional Instructions: Please follow-up with your doctor in one to 2 days. If you have any worsening symptoms return to the emergency room. Referrals: Baljinder Smiley MD [Primary Care Provider] - 1-2 days
== END 2021-03-11 16:08 | disposition home or self-care (01) ==
LOC: EC 15:26
DX: T78.40XA Allergy, unspecified, initial encounter (principal); I10 Essential (primary) hypertension; E78.5 Hyperlipidemia, unspecified; N40.0 Benign prostatic hyperplasia without lower urinary tract symptoms; K21.9 Gastro-esophageal reflux disease without esophagitis; M19.90 Unspecified osteoarthritis, unspecified site; Z79.82 Long term (current) use of aspirin; Z79.899 Other long term (current) drug therapy; Z87.891 Personal history of nicotine dependence; Z95.0 Presence of cardiac pacemaker; Z95.5 Presence of coronary angioplasty implant and graft; Z82.49 Family history of ischemic heart disease and other diseases of the circulatory system; Z80.1 Family history of malignant neoplasm of trachea, bronchus and lung
CPT/HCPCS: 99282

== ENCOUNTER → 2023-02-07 | Outpatient (CLI) | payer MEDICARE ==
--- NOTE | 2023-02-08 15:42 | US ---
EXAMINATION TYPE: US kidneys/renal and bladder DATE OF EXAM: 02/08/2023 COMPARISON: NONE CLINICAL INDICATION: Male, 82 years old with history of N28.9 DISORDER OF KIDNEY AND URETER; Left kid yusef cyst seen on prior CT EXAM MEASUREMENTS: Right Kidney: 9.5 x 5.1 x 4.3 cm Left Kidney: 8.2 x 4.2 x 5.0 cm Right Kidney: cortical thinning Left Kidney: small in size, cortical thinning, 2.2 x 1.9 x 2.9cm exophytic hypoechoic cyst medial inf erior pole Bladder: not fully distended, wnl as seen Bilateral Jets seen: no Urinary bladder is sonolucent. The posterior wall is normal. Prostate appears prominent. IMPRESSION: 1. Inferior pole left renal cyst.
== END | disposition home or self-care (01) ==
LOC: RADUSWWP 09:39
PROVIDERS: ATTEND Family Medicine
DX: N28.1 Cyst of kidney, acquired (principal); N28.9 Disorder of kidney and ureter, unspecified
CPT/HCPCS: 76770

== ENCOUNTER 2023-04-21 16:04 | Inpatient (IN) | payer MEDICARE ==
[2023-04-21] MEDS ORDERED: ASPIRIN 81 MG PO STA (16:46)
--- NOTE | 2023-04-21 17:03 | ED ---
Chest Pain HPI - General Chief Complaint: Chest Pain Stated Complaint: CHEST PAIN, ARM PAIN Time Seen by Provider: 04/21/23 16:18 Source: patient Mode of arrival: ambulatory Limitations: no limitations - History of Present Illness Initial Comments: 82-year-old male with past medical history of coronary artery disease and hypertension, hyperlipidemia who presents to the emergency department reporting upper respiratory symptoms. States that he has had congestion for the past week which she feels like has moved into his chest. Complains of facial pressure which has moved and now caused him to have chest pressure. States that last night he was having chest pain that radiated into his arm. Presents today and states that he does not have any chest pain any longer. No nausea or vomiting. No fevers. Admits to a productive cough. Patient presents requesting Covid testing. Denies any sick contacts. He did take some Tylenol for his symptoms e arlier today. No other alleviating, skin fitter modifying factors - Related Data Home Medications Medication Instructions Recorded Confirmed Aspirin [Adult Low Dose Aspirin EC] 81 mg PO DAILY 10/18/16 04/21/23 atenoloL 25 mg PO DAILY 10/18/16 04/21/23 Rosuvastatin Calcium [Crestor] 5 mg PO Q48H 03/01/17 04/21/23 lisinopriL 40 mg PO DAILY 03/01/17 04/21/23 Allergies Allergy/AdvReac Type Severity Reaction Status Date / Time cat dander Allergy Cough Verified 04/21/23 18:28 Review of Systems ROS Statement: Those systems with pertinent positive or pertinent negative responses have been documented in the HPI. ROS Other: All systems not noted in ROS Statement are negative. Past Medical History Past Medical History: Chest Pain / Angina, Eye Disorder, GERD/Reflux, Hearing Disorder / Deafness, Hyperlipidemia, Hypertension, Osteoarthritis (OA), Prostate Disorder Additional Past Medical History / Comment(s): 12/20/20 EGD showed small hiatal hernia/esophageal stricture/esophagitis, dysphagia, pyloric stenosis/surgery, BPH, bilateral hand arthritis, L ear tinnitis, bilateral eye surgery for glaucoma. History of Any Multi-Drug Resistant Organisms: None Reported Past Surgical History: Bowel Resection, Heart Catheterization With Stent, Pacemaker Additional Past Surgical History / Comment(s): 12/20/20 EGD for FB removal, bowel surgery as for rerouting, surgery for pyloric stenosis pt states as an adult, colonoscopies, 2007 PCI with stent, [address] insertion [address] [facility], bilateral eye surgery for glaucoma. Past Anesthesia/Blood Transfusion Reactions: No Reported Reaction Date of Last Stent Placement:: 2007 Type of Cardiac Device: Permanent Pacemaker Device Placement Date:: 2017 Past Psychological History: No Psychological Hx Reported Smoking Status: Former smoker Past Alcohol Use History: None Reported Past Drug Use History: None Reported - Past Family History Mother Family Medical History: Myocardial Infarction ([place]) Additional Family Medical History / Comment(s): Mother of a [place] in her 70s. Father Family Medical History: Cancer Additional Family Medical History / Comment(s): Father of lung cancer. He was a smoker. General Exam Limitations: no limitations General appearance: alert, in no apparent distress Head exam: Present: atraumatic, normocephalic, normal inspection Eye exam: Present: normal appearance, PERRL, EOMI. Absent: scleral icterus, conjunctival injection, periorbital swelling ENT exam: Present: normal exam, mucous membranes moist Neck exam: Present: normal inspection. Absent: tenderness, meningismus, lymphadenopathy Respiratory exam: Present: normal lung sounds bilaterally. Absent: respiratory distress, wheezes, rales, rhonchi, stridor Cardiovascular Exam: Present: regular rate, normal rhythm, normal heart sounds. Absent: systolic murmur, diastolic murmur, rubs, gallop, clicks GI/Abdominal exam: Present: soft, normal bowel sounds. Absent: distended, tenderness, guarding, rebound, rigid Extremities exam: Present: normal inspection, full ROM, normal capillary refill. Absent: tenderness, pedal edema, joint swelling, calf tenderness Back exam: Present: normal inspection Neurological exam: Present: alert, oriented X3, CN II-XII intact Psychiatric exam: Present: normal affect, normal mood Skin exam: Present: warm, dry, intact, normal color. Absent: rash Course Vital Signs 04/21/23 04/21/23 04/21/23 16:07 18:00 18:21 Temperature 98.2 F Pulse Rate 61 49 L 49 L Pulse Rate [ Pulse Oximetery ] Respiratory 17 15 18 Rate Blood Pressure 157/79 133/73 136/83 Blood Pressure [Left Arm] O2 Sat by Pulse 98 98 98 Oximetry 04/21/23 04/21/23 19:00 20:00 Temperature 97.7 F Pulse Rate 49 L Pulse Rate [ 61 Pulse Oximetery ] Respiratory 14 15 Rate Blood Pressure 136/83 Blood Pressure 177/89 [Left Arm] O2 Sat by Pulse 98 99 Oximetry Chest Pain MDM - MDM Was pt. sent in by a medical professional or institution (, PA, TUFT MACHINE OPERATOR, urgent care, hospital, or residential...) When possible be specific @ -No Did you speak to anyone other than the patient for history (EMS, parent, family, police, friend...)? What history was obtained from this source @ -No Did you review nursing and triage notes (agree or disagree)? Why? @ -I reviewed and agree with nursing and triage notes Were old charts reviewed (outside hosp., previous admission, EMS record, old EKG, old radiological studies, urgent care reports/EKG's, residential records)? Report findings @ -I reviewed patient's previous EKGs from 2019 which do not have same morp hology Differential Diagnosis (chest pain, altered mental status, abdominal pain women, abdominal pain men, vaginal bleeding, weakness, fever, dyspnea, syncope, headache, dizziness, GI bleed, back pain, seizure, CVA, palpatations, mental health, musculoskeletal)? @ -Differential Chest Pain: Stable Angina, Unstable Angina, STEMI, NSTEMI Aortic Dissection, Pneumothorax, Musculoskeletal, Esophageal Spasm GERD, Cholecystitis, Pancreatitis, Zoster, this is not meant to be an all-inclusive list. EKG interpreted by me (3pts min.). @ - EKG done at 1618 demonstrates an atrial pacemaker with a rate of 52. NM interval 282. QRS 94. QTC of 408. There is some J-point elevation in aVL however the patient is not in [address] depression 2, 3, aVF as well as V4 through V6 Repeat EKG at 1641 demonstrate same is rhythm with a rate of 49. NM interval is 284. QRS 93. QTC of 403. Continued J-point elevation in aVL. ST depression 2, 3, aVF and V4 through V6 X-rays interpreted by me (1pt min.). @ -Yes and demonstrates no acute intrathoracic process CT interpreted by me (1pt min.). @ -None done U/S interpreted by me (1pt. min.). @ -None done What testing was considered but not performed or refused? (CT, X-rays, U/S, labs)? Why? @ -None What meds were considered but not given or refused? Why? @ -None Did you discuss the management of the patient with other professionals (professionals i.e. , PA, TUFT MACHINE OPERATOR, lab, RT, psych nurse, social worker aide, printed circuit boards stripper etcher, teacher, intelligence officer, case managers)? Give summary @ -I have paged cardiology on-call and I am awaiting callback Was smoking cessation discussed for >3mins.? @ -No Was critical care preformed (if so, how long)? @ -Yes, 35 minutes for heparinization of the patient Were there social determinants of health that impacted care today? How? (Homelessness, low income, unemployed, alcoholism, drug addiction, transportation, low edu. Level, literacy, decrease access to med. care, longterm, rehab)? @ -No Was there de-escalation of care discussed even if they declined (Discuss DNR or withdrawal of care, Hospice)? DNR status @ -No What co-morbidities impacted this encounter? (DM, HTN, Smoking, COPD, CAD, Cancer, CVA, ARF, Chemo, Hep., AIDS, mental health diagnosis, sleep apnea, morbid obesity)? @ -Coronary artery disease Was patient admitted / discharged? Hospital course, mention meds given and route, prescriptions, significant lab abnormalities, going to OR and other pertinent info. @ -Upon arrival patient is placed into room 7. A thorough history and physical exam is performed. Patient is placed on continuous pulse ox and cardiac monitoring. 12-lead EKG is obtained and concerning for ischemic changes in inferior leads. IV is established and laboratory studies are conducted. Patient has no active chest pain at this time. Troponin is negative. Viral panel is negative. Chest x-ray demonstrates no acute process. I did repeat an EKG which continues to demonstrate ischemic changes in inferior leads. Spoke with the patient regards to his EKG findings and recommended admission for cardiology consultation. Patient was reluctant to stay however did agree. I did heparinize the patient. I called and spoke with Enrique from [facility] who agreed to admit the patient. I did place a call out to the merchandiser seasonal on-call, Dr. Clark and I am awaiting callback. Patient was taken to the floor in stable condition Undiagnosed new problem with uncertain prognosis? @ -Yes Drug Therapy requiring intensive monitoring for toxicity (Heparin, Nitro, Insulin, Cardizem)? @ -heparin Were any procedures done? @ -No Diagnosis/symptom? @ -Acute chest pain, abnormal EKG Acute, or Chronic, or Acute on Chronic? @ -Acute Uncomplicated (without systemic symptoms) or Complicated (systemic symptoms)? @ -Complicated Side effects of treatment? @ -No Exacerbation, Progression, or Severe Exacerbation? @ -No Poses a threat to life or bodily function? How? (Chest pain, [place], [place], pneumonia, PE, COPD, DKA, ARF, appy, cholecystitis, CVA, Diverticulitis, Homicidal, Suicidal, threat to staff... and all critical care pts) @ -Yes, patient has ischemic appearing EKG Disposition Clinical Impression: Sinus pain, Chest pain Disposition: ADMITTED IP TO THIS HOSP Condition: Serious Is patient prescribed a controlled substance at d/c from ED?: No Time of Disposition: 19:18 Decision to Admit Reason: Admit from EC Decision Date: 04/21/23 Decision Time: 19:18
[2023-04-21 17:16] LABS: Basophils % (A) 0 %; Eosinophils # (A) 0.1 k/uL (0-0.7); Eosinophils % (A) 2 %; HCT 42.5 % (39.0-53.0); Lymphocytes # (A) 1.2 k/uL (1.0-4.8); Lymphocytes % (A) 16 %; MCH 30.9 pg (25.0-35.0); MCV 93.7 fL (80.0-100.0); Monocytes # (A) 0.5 k/uL (0-1.0); Monocytes % (A) 7 %; Neutrophils # (A) 5.2 k/uL (1.3-7.7); Neutrophils % (A) 73 %; Platelet Count 118 k/uL (150-450); RBC 4.54 m/uL (4.30-5.90); RDW 13.1 % (11.5-15.5); WBC 7.1 k/uL (3.8-10.6)
[2023-04-21 17:25] LABS: Partial Thromboplastin Time 24.5 sec (22.0-30.0); Prothrombin Time 10.5 sec (9.0-12.0)
--- NOTE | 2023-04-21 17:32 | XR ---
EXAMINATION TYPE: XR chest 2V DATE OF EXAM: 04/21/2023 COMPARISON: 01/15/2020 HISTORY: Chest pain TECHNIQUE: Frontal and lateral views of the chest are obtained. FINDINGS: There is a 2-lead cardiac pacemaker unchanged in position. The lungs are clear of consolidative, interstitial or masslike opacity. There is no pleural effusion, pleural thickening or pneumothorax. Heart, pulmonary vasculature, mediastinum and hilum appear normal. The osseous structures are intact. IMPRESSION: No acute cardiopulmonary disease with no interval change.
[2023-04-21 17:36] LABS: ALT 17 U/L (4-49); AST 23 U/L (17-59); African American GFR (CKD) 81 (>60 ml/min/1.73 sqM); Albumin 3.9 g/dL (3.5-5.0); Alkaline Phosphatase 63 U/L (38-126); Anion Gap 11 mmol/L; Blood Urea Nitrogen 23 mg/dL (9-20); Carbon Dioxide 21 mmol/L (22-30); Chloride 104 mmol/L (98-107); Glucose 213 mg/dL (74-99); Lipase 66 U/L (23-300); Non-African American GFR(CKD) 70 (>60 ml/min/1.73 sqM); Potassium 4.5 mmol/L (3.5-5.1); Sodium 136 mmol/L (137-145); Total Bilirubin 0.5 mg/dL (0.2-1.3); Total Protein 6.8 g/dL (6.3-8.2)
[2023-04-21 17:45] LABS: NT-Pro-B-Type Natriuretic Pept 323 pg/mL
[2023-04-21] MEDS ORDERED: NALOXONE 0.4 MG/ML 1 ML VIAL IV PRN (19:18)
[2023-04-21] MEDS ORDERED: HEPARIN SODIUM 1,000 UN/ML (10ML VL) IV PRN (19:25)
[2023-04-21] MEDS ORDERED: HEPARIN SOD,PORK IN 0.45% NACL 25,000 UNIT in 0.45% NACL 1 250ML.BAG IV SCH (19:30)
[2023-04-22 07:54] LABS: Basophils % (A) 0 %; Eosinophils # (A) 0.2 k/uL (0-0.7); Eosinophils % (A) 3 %; HCT 41.8 % (39.0-53.0); HGB 13.7 gm/dL (13.0-17.5); Lymphocytes % (A) 17 %; MCH 31.2 pg (25.0-35.0); MCHC 32.7 g/dL (31.0-37.0); MCV 95.2 fL (80.0-100.0); Monocytes # (A) 0.5 k/uL (0-1.0); Monocytes % (A) 8 %; Neutrophils % (A) 70 %; Platelet Count 101 k/uL (150-450); RDW 13.2 % (11.5-15.5); WBC 5.8 k/uL (3.8-10.6)
[2023-04-22 08:03] LABS: Partial Thromboplastin Time 82.2 sec (22.0-30.0)
[2023-04-22] MEDS ORDERED: DEXTROSE 50% SYRINGE 50 ML IVP PRN ×2 (08:39)
[2023-04-22] MEDS ORDERED: lisinopriL 20 MG TAB PO SCH (09:00)
[2023-04-22] MEDS ORDERED: atenoloL 25 MG TAB PO SCH (09:00)
[2023-04-22] MEDS: ASPIRIN 81 MG PO SCH (09:32)
--- NOTE | 2023-04-22 10:21 | P.CRDCN ---
History of Present Illness History of present illness: HISTORY OF PRESENT ILLNESS: This is a 82-year-old male with a past medical history significant for coronary artery disease with previous stenting, hypertension, hyperlipidemia, and pacemaker implantation. Patient follows in the office with Dr. Peter. We have been asked to see the patient in consultation for chest pain and abnormal EKG. Patient examined at the bedside. Patient states he has been having some upper respiratory symptoms for the past week. He reports a cough with sputum production. He denied any fever or chills. He denied having any shortness of breath. He reports yesterday he began to have a lot of chest pressure. He also reports over the past week he has not been able to do a lot of physical work outside due to "feeling bad" but denies any chest pain or pressure. He states he has had one stent placed previously which was at least 10 years ago. He denies having any recent stress testing. * EKG reveals sinus mechanism with T-wave inversions in inferior lateral leads. Previous EKG reveals T-wave inversions in inferior leads only. * Chest xray negative for acute process * Laboratory data: WBC 5.8. Hemoglobin 13.7. Platelet count 101. Sodium 136. Potassium 4.5. BUN 23. Creatinine 1.0. Magnesium 2.0. Troponin negative 3. ProBNP 323. * Current home cardiac medications include lisinopril 40 mg daily, atenolol 25 mg daily, aspirin 81 mg daily, and Crestor 5 mg every 48 hours REVIEW OF SYSTEMS: At the time of my exam: CONSTITUTIONAL: Denies fever or chills. HEENT: Denies blurred vision, vision changes, or eye pain. Denies hemoptysis CARDIOVASCULAR: Denies chest pain. Denies orthopnea. Denies PND. Denies palpitations RESPIRATORY: Denies shortness of breath. GASTROINTESTINAL: Denies abdominal pain. Denies nausea or vomiting. HEMATOLOGIC: Denies bleeding disorders. GENITOURINARY: Denies any blood in urine. SKIN: Denies pruitis. Denies rash. PHYSICAL EXAM: VITAL SIGNS: Reviewed. GENERAL: Well-developed in no acute distress. HEENT: Head is normocephalic. Pupils are equal, round. Sclerae anicteric. Mucous membranes of the mouth are moist. Neck supple. No JVD or thyromegaly LUNGS: Respirations even and unlabored. Lungs essentially clear to auscultation bilaterally. HEART: Regular rate and rhythm. S1 and S2 heard. ABDOMEN: Soft. Nondistended. Nontender. EXTREMITIES: Normal range of motion. No clubbing or cyanosis. Peripheral pulses intact. No lower extremity edema NEUROLOGIC: Awake and alert. Oriented x 3. ASSESSMENT: Chest pain with abnormal EKG revealing T-wave inversions in inferior lateral leads Coronary artery disease with previous stenting, exact details unknown Hypertension Hyperlipidemia History of pacemaker implantation PLAN: Obtain 2-D echo to assess cardiac structure and function Resume home cardiac medications Continue IV heparin at this time Attempting to get office records from Cardiology office (currently having internet issues at the hospital). Once records are reviewed, further recommendations will be made. Nurse practitioner note has been reviewed by physician. Signing provider agrees with the documented findings, assessment, and plan of care. Past Medical History Past Medical History: Chest Pain / Angina, Eye Disorder, GERD/Reflux, Hearing Disorder / Deafness, Hyperlipidemia, Hypertension, Osteoarthritis (OA), Prostate Disorder Additional Past Medical History / Comment(s): 12/20/20 EGD showed small hiatal hernia/esophageal stricture/esophagitis, dysphagia, pyloric stenosis/surgery, BPH, bilateral hand arthritis, L ear tinnitis, bilateral eye surgery for glaucoma. History of Any Multi-Drug Resistant Organisms: None Reported Past Surgical History: Bowel Resection, Heart Catheterization With Stent, Pacemaker Additional Past Surgical History / Comment(s): 12/20/20 EGD for FB removal, bowel surgery as for rerouting, surgery for pyloric stenosis pt states as an adult, colonoscopies, 2007 PCI with stent, 2018 pacer insertion at [facility], bilateral eye surgery for glaucoma. Past Anesthesia/Blood Transfusion Reactions: No Reported Reaction Date of Last Stent Placement:: 2007 Type of Cardiac Device: Permanent Pacemaker Device Placement Date:: 2017 Past Psychological History: No Psychological Hx Reported Smoking Status: Former smoker Past Alcohol Use History: None Reported Past Drug Use History: None Reported - Past Family History Mother Family Medical History: Myocardial Infarction (SD) Additional Family Medical History / Comment(s): Mother of a SD in her 70s. Father Family Medical History: Cancer Additional Family Medical History / Comment(s): Father of lung cancer. He was a smoker. Medications and Allergies Home Medications Medication Instructions Recorded Confirmed Type Aspirin [Adult Low Dose Aspirin EC] 81 mg PO DAILY 10/18/16 04/21/23 History atenoloL 25 mg PO DAILY 10/18/16 04/21/23 History Rosuvastatin Calcium [Crestor] 5 mg PO Q48H 03/01/17 04/21/23 History lisinopriL 40 mg PO DAILY 03/01/17 04/21/23 History Allergies Allergy/AdvReac Type Severity Reaction Status Date / Time cat dander Allergy Cough Verified 04/21/23 18:28 Physical Exam Vitals: Vital Signs Temp Pulse Pulse Resp BP BP Pulse Ox 04/22/23 07:00 98.0 F 61 16 107/64 100 04/22/23 02:48 97.7 F 50 L 16 131/69 99 04/21/23 20:00 97.7 F 61 15 177/89 99 04/21/23 19:00 49 L 14 136/83 98 04/21/23 18:21 49 L 18 136/83 98 04/21/23 18:00 49 L 15 133/73 98 04/21/23 16:07 98.2 F 61 17 157/79 98 Intake and Output 04/21/23 04/22/23 04/22/23 22:59 06:59 14:59 Intake Total 45.876 45.127 Balance 45.876 45.127 Intake: Intake, IV Titration 45.876 45.127 Amount Heparin Sod,Pork in 0.45% 45.876 45.127 NaCl 25,000 unit In 0.45 % NaCl 1 250ml.bag @ 12 UNITS/KG/HR 7.076 mls/hr IV .Q24H [facility] Rx#: [id number] Other: # Voids 2 Weight 58.967 kg Results 04/22/23 07:14 04/21/23 17:08 Cardiac Enzymes 04/21/23 04/21/23 04/21/23 Range/Units 17:08 17:08 19:41 AST 23 (17-59) U/L Troponin I <0.012 <0.012 (0.000-0.034) ng/mL 04/22/23 Range/Units 01:47 AST (17-59) U/L Troponin I <0.012 (0.000-0.034) ng/mL Coagulation 04/21/23 04/22/23 04/22/23 Range/Units 17:08 01:47 07:14 PT 10.5 11.0 (9.0-12.0) sec APTT 24.5 40.3 H 82.2 H (22.0-30.0) sec CBC 04/21/23 04/22/23 Range/Units 17:08 07:14 WBC 7.1 5.8 (3.8-10.6) k/uL RBC 4.54 4.40 (4.30-5.90) m/uL Hgb 14.0 13.7 (13.0-17.5) gm/dL Hct 42.5 41.8 (39.0-53.0) % Plt Count 118 L 101 L (150-450) k/uL Comprehensive Metabolic Panel 04/21/23 Range/Units 17:08 Sodium 136 L (137-145) mmol/L Potassium 4.5 (3.5-5.1) mmol/L Chloride 104 (98-107) mmol/L Carbon Dioxide 21 L (22-30) mmol/L BUN 23 H (9-20) mg/dL Creatinine 1.00 (0.66-1.25) mg/dL Glucose 213 H (74-99) mg/dL Calcium 9.0 (8.4-10.2) mg/dL AST 23 (17-59) U/L ALT 17 (4-49) U/L Alkaline Phosphatase 63 (38-126) U/L Total Protein 6.8 (6.3-8.2) g/dL Albumin 3.9 (3.5-5.0) g/dL Current Medications Generic Name Dose Route Start Last Admin Trade Name Freq PRN Reason Stop Dose Admin Aspirin 81 mg 04/22/23 09:00 Aspirin 81 Mg PO DAILY [facility] Atenolol 25 mg 04/22/23 09:00 Atenolol 25 Mg Tab PO DAILY [facility] Atorvastatin Calcium 10 mg 04/23/23 09:00 Atorvastatin 10 Mg Tab PO Q48H [facility] Heparin Sodium (Porcine) 0 unit 04/21/23 19:25 04/22/23 02:49 Heparin Sodium 1,000 Un/Ml (10ml Vl) IV 1,474 unit PER PROTOCOL PRN Administration Low PTT Protocol Heparin Sodium/Sodium Chloride 250 mls @ 7.076 mls/hr 04/21/23 19:30 04/22/23 02:43 25,000 unit/ Sodium Chloride IV 14 units/kg/hr .Q24H [facility] 8.255 mls/hr Titration Protocol 12 UNITS/KG/HR Lisinopril 40 mg 04/22/23 09:00 Lisinopril 20 Mg Tab PO DAILY [facility] Naloxone HCl 0.2 mg 04/21/23 19:18 Naloxone 0.4 Mg/Ml 1 Ml Vial IV Q2M PRN Opioid Reversal Intake and Output 04/21/23 04/22/23 04/22/23 22:59 06:59 14:59 Intake Total 45.876 45.127 Balance 45.876 45.127 Intake: Intake, IV Titration 45.876 45.127 Amount Heparin Sod,Pork in 0.45% 45.876 45.127 NaCl 25,000 unit In 0.45 % NaCl 1 250ml.bag @ 12 UNITS/KG/HR 7.076 mls/hr IV .Q24H [facility] Rx#: [id number] Other: # Voids 2 Weight 58.967 kg 04/22/23 07:14 04/21/23 17:08
[2023-04-22] MEDS ORDERED: CAFFEINE CITRATE 60 MG/3 ML VIAL IV PRN (10:30)
[2023-04-22] MEDS ORDERED: AMINOPHYLLINE 500 MG/20 ML VIAL IV PRN (10:30)
[2023-04-22] MEDS ORDERED: REGADENOSON 0.4 MG/5 ML SYRINGE IV PRN (10:30)
[2023-04-22 11:13] LABS: Carbon Dioxide 25.8 mmol/L (21.6-31.8); Chloride 108 mmol/L (96-109); Glucose 163 mg/dL (70-110); Potassium 4.2 mmol/L (3.5-5.5); Sodium 144 mmol/L (135-145)
[2023-04-22 11:59] LABS: Glucose,Whole Blood 426 mg/dL (70-110)
[2023-04-22] MEDS ORDERED: INSULIN ASPART (NovoLOG) 100 UNIT/ML VIAL SQ ONE (12:26)
[2023-04-22] MEDS: INSULIN ASPART (NovoLOG) 100 UNIT/ML VIAL SQ SCH ×4 (12:35→21:59)
--- NOTE | 2023-04-22 12:43 | P.HPIM ---
History of Present Illness H&P Date: 04/22/23 This is an 82 year old male with medical history of chest pain, hypertension, hyperlipidemia, gastroesophageal reflux disease, pyloric stenosis with prior surgery. Patient also has history of cardiac stent 10 years ago and has a permanent pacemaker. Patient presents with more upper respiratory like symptoms that has since progressed to chest pressure. Patient says he was outside walking and was able to catch his breath he's been experiencing intermittent chest pressure over the last week. Having intermittent cough also with mucoid sputum. Denies any associated symptoms denying any nausea vomiting diarrhea diaphoresis patient denies having any dizziness or lightheadedness. Chest x-ray on admission negative for acute cardiopulmonary disease. EKG showing atrial pacemaker left ventricular hypertrophy and ST to T wave change. This is an abnormal EKG. Heart rate is 49. Patient was evaluated in the ER started on IV heparin drip and was admitted to the hospital in observation with cardiology consultation. Blood pressure is on the lower side 107 systolic recommending at this time to hold atenolol and lisinopril. REVIEW OF SYSTEMS: CONSTITUTIONAL: No fever, no malaise, no fatigue. HEENT: No recent visual problems or hearing problems. Denied any sore throat. CARDIOVASCULAR: Reports chest pain, orthopnea, PND, no palpitations, no syncope. PULMONARY: No shortness of breath, no cough, no hemoptysis. GASTROINTESTINAL: No diarrhea, no nausea, no vomiting, no abdominal pain. NEUROLOGICAL: No headaches, no weakness, no numbness. HEMATOLOGICAL: Denies any bleeding or petechiae. GENITOURINARY: Denies any burning micturition, frequency, or urgency. MUSCULOSKELETAL/RHEUMATOLOGICAL: Denies any joint pain, swelling, or any muscle pain. ENDOCRINE: Denies any polyuria or polydipsia. The rest of the 14-point review of systems is negative. PHYSICAL EXAMINATION: GENERAL: The patient is alert and oriented x3, not in any acute distress. Well developed, well nourished. HEENT: Pupils are round and equally reacting to light. EOMI. No scleral icterus. No conjunctival pallor. Normocephalic, atraumatic. No pharyngeal erythema. No thyromegaly. CARDIOVASCULAR: S1 and S2 present. No murmurs, rubs, or gallops. PULMONARY: Chest is clear to auscultation, no wheezing or crackles. ABDOMEN: Soft, nontender, nondistended, normoactive bowel sounds. No palpable organomegaly. MUSCULOSKELETAL: No joint swelling or deformity. EXTREMITIES: No cyanosis, clubbing, or pedal edema. NEUROLOGICAL: Gross neurological examination did not reveal any focal deficits. SKIN: No rashes. Assessment Chest pain and abnormal EKG chest pain is currently resolved at this time Acute sinusitis likely ALLERGIC in nature patient be treated with Claritin and Flonase History hypertension History of hyperlipidemia Gastroesophageal reflux disease History of pyloric stenosis with surgery History of coronary artery disease with prior cardiac stenting Permanent pacemaker GI prophylaxis DVT prophylaxis IV heparin Full code Plan Claritin and flonase added. Cardiology is planning on performing a Lexiscan stress test in the morning and is obtain reports from the office. Recommending to stop the atenolol and lisinopril as patient is bradycardic and blood pressure is low normal Patient will be NPO after midnight The impression and plan of care has been dictated by Kylie Hager Nurse Practitioner as directed. Dr. Jono MD I have performed a history and physical examination and medical decision making of this patient, discussed the same with the dictator, and agree with the dictators assessment and plan as written, documented as a scribe. Based on total visit time, I have performed more than 50% of this visit. Past Medical History Past Medical History: Chest Pain / Angina, Eye Disorder, GERD/Reflux, Hearing Disorder / Deafness, Hyperlipidemia, Hypertension, Osteoarthritis (OA), Prostate Disorder Additional Past Medical History / Comment(s): 12/20/20 EGD showed small hiatal hernia/esophageal stricture/esophagitis, dysphagia, pyloric stenosis/surgery, BPH, bilateral hand arthritis, L ear tinnitis, bilateral eye surgery for glaucoma. History of Any Multi-Drug Resistant Organisms: None Reported Past Surgical History: Bowel Resection, Heart Catheterization With Stent, Pacemaker Additional Past Surgical History / Comment(s): 12/20/20 EGD for FB removal, bowel surgery as infant for rerouting, surgery for pyloric stenosis pt states as an adult, colonoscopies, 2007 PCI with stent, 2018 pacer insertion at [facility], bilateral eye surgery for glaucoma. Past Anesthesia/Blood Transfusion Reactions: No Reported Reaction Date of Last Stent Placement:: 2007 Type of Cardiac Device: Permanent Pacemaker Device Placement Date:: 2017 Past Psychological History: No Psychological Hx Reported Smoking Status: Former smoker Past Alcohol Use History: None Reported Past Drug Use History: None Reported - Past Family History Mother Family Medical History: Myocardial Infarction (CA) Additional Family Medical History / Comment(s): Mother of a CA in her 70s. Father Family Medical History: Cancer Additional Family Medical History / Comment(s): Father of lung cancer. He was a smoker. Medications and Allergies Home Medications Medication Instructions Recorded Confirmed Type Aspirin [Adult Low Dose Aspirin EC] 81 mg PO DAILY 10/18/16 04/21/23 History atenoloL 25 mg PO DAILY 10/18/16 04/21/23 History Rosuvastatin Calcium [Crestor] 5 mg PO Q48H 03/01/17 04/21/23 History lisinopriL 40 mg PO DAILY 03/01/17 04/21/23 History Allergies Allergy/AdvReac Type Severity Reaction Status Date / Time cat dander Allergy Cough Verified 04/21/23 18:28 Physical Exam Vitals: Vital Signs Temp Pulse Pulse Resp BP BP Pulse Ox 04/22/23 07:00 98.0 F 61 16 107/64 100 04/22/23 02:48 97.7 F 50 L 16 131/69 99 04/21/23 20:00 97.7 F 61 15 177/89 99 04/21/23 19:00 49 L 14 136/83 98 04/21/23 18:21 49 L 18 136/83 98 04/21/23 18:00 49 L 15 133/73 98 04/21/23 16:07 98.2 F 61 17 157/79 98 Intake and Output 04/21/23 04/22/23 04/22/23 22:59 06:59 14:59 Intake Total 45.876 45.127 Balance 45.876 45.127 Intake: Intake, IV Titration 45.876 45.127 Amount Heparin Sod,Pork in 0.45% 45.876 45.127 NaCl 25,000 unit In 0.45 % NaCl 1 250ml.bag @ 12 UNITS/KG/HR 7.076 mls/hr IV .Q24H [facility] Rx#: [id number] Other: # Voids 2 Weight 58.967 kg Results CBC & Chem 7: 04/22/23 07:14 04/22/23 07:14 Labs: Abnormal Lab Results - Last 24 Hours (Table) 04/21/23 04/21/23 04/22/23 Range/Units 17:08 17:08 01:47 Plt Count 118 L (150-450) k/uL APTT 40.3 H (22.0-30.0) sec Sodium 136 L (137-145) mmol/L Carbon Dioxide 21 L (22-30) mmol/L BUN 23 H (9-20) mg/dL Glucose 213 H (74-99) mg/dL 04/22/23 04/22/23 Range/Units 07:14 07:14 Plt Count 101 L (150-450) k/uL APTT 82.2 H (22.0-30.0) sec Sodium (137-145) mmol/L Carbon Dioxide (22-30) mmol/L BUN (9-20) mg/dL Glucose (74-99) mg/dL Thrombosis Risk Factor Assmnt - Choose All That Apply Any of the Below Risk Factors Present?: No Other Risk Factors: Yes Each Risk Factor Represents 3 Points: Age 75 years or older Other congenital or acquired thrombophilia - If yes, enter type in comment: No Thrombosis Risk Factor Assessment Total Risk Factor Score: 3 Thrombosis Risk Factor Assessment Level: Moderate Risk Assessment and Plan Time with Patient: Less than 30
[2023-04-22 17:01] LABS: Glucose,Whole Blood 61 mg/dL (70-110)
[2023-04-22 17:21] LABS: Glucose,Whole Blood 61 mg/dL (70-110)
[2023-04-22] MEDS: LORATADINE 10 MG TAB PO SCH (17:34)
[2023-04-22] MEDS: FLUTICASONE 50MCG/SPRAY NASAL 16GM EA NOSTRIL SCH (17:34)
[2023-04-22 17:39] LABS: Glucose,Whole Blood 68 mg/dL (70-110)
[2023-04-22 17:58] LABS: Glucose,Whole Blood 93 mg/dL (70-110)
[2023-04-22 20:44] LABS: Glucose,Whole Blood 186 mg/dL (70-110)
[2023-04-23 06:38] LABS: Glucose,Whole Blood 107 mg/dL (70-110)
[2023-04-23] MEDS: INSULIN ASPART (NovoLOG) 100 UNIT/ML VIAL SQ SCH ×7 (06:38→22:09)
--- NOTE | 2023-04-23 07:40 | CA ---
Transthoracic Echo Report Name: Isaac Raza Age: 82 Gender: M : 1940 Exam Date: 04/22/2023 15:45 Exam Location: [facility] Ht (in): 62 Wt (lb): 130 Ordering Physician: Krissy Dumont Attending/Referring Phys: [id number], Julia Skidder Operator Timmy Baeza Procedure CPT: Indications: LV function, CP Cardiac Hx: Technical Quality: Fair Contrast 1: Total Dose (mL): Contrast 2: Total Dose (mL): MEASUREMENTS (Male / Female) Normal Values 2D ECHO LV Diastolic Diameter PLAX 4.0 cm 4.2 - 5.9 / 3.9 - 5.3 cm LV Systolic Diameter PLAX 2.9 cm IVS Diastolic Thickness 1.2 cm 0.6 - 1.0 / 0.6 - 0.9 cm LVPW Diastolic Thickness 1.3 cm 0.6 - 1.0 / 0.6 - 0.9 cm LV Relative Wall Thickness 0.6 RV Internal Dim ED PLAX 2.7 cm LVOT Diameter 2.2 cm Aortic Root Diameter 2.7 cm LA Systolic Diameter LX 2.3 cm 3.0 - 4.0 / 2.7 - 3.8 cm LV Diastolic Volume MOD BP 60.9 cm??? 67 - 155 / 56 - 104 cm??? LV Systolic Volume MOD BP 30.7 cm??? 22 - 58 / 19 - 49 cm??? LV Ejection Fraction MOD BP 49.6 % >= 55 % LV Cardiac Index MOD BP 1552.2 cm???/min???m??? LV Diastolic Volume MOD 4C 69.4 cm??? LV Systolic Volume MOD 4C 48.5 cm??? LV Ejection Fraction MOD 4C 30.1 % LV Cardiac Index MOD 4C 1075.3 cm???/min???m??? LV Diastolic Length 4C 7.1 cm LV Systolic Length 4C 6.0 cm LV Diastolic Volume MOD 2C 53.1 cm??? LV Systolic Volume MOD 2C 19.6 cm??? LV Ejection Fraction MOD 2C 63.1 % LV Cardiac Index MOD 2C 1723.0 cm???/min???m??? LV Diastolic Length 2C 7.0 cm LV Systolic Length 2C 6.0 cm LA Volume 44.7 cm??? 18 - 58 / 22 - 52 cm??? DOPPLER AV Peak Velocity 159.3 cm/s AV Peak Gradient 10.2 mmHg LVOT Peak Velocity 89.7 cm/s LVOT Peak Gradient 3.2 mmHg AV Area Cont Eq pk 2.1 cm??? MR Peak Velocity 439.7 cm/s MR Peak Gradient 77.3 mmHg Mitral E Point Velocity 110.1 cm/s Mitral A Point Velocity 89.6 cm/s Mitral E to A Ratio 1.2 MV Deceleration Time 204.3 ms MV E' Velocity 6.7 cm/s Mitral E to MV E' Ratio 16.5 TR Peak Velocity 288.8 cm/s TR Peak Gradient 33.4 mmHg Right Ventricular Systolic Press 38.6 mmHg FINDINGS Left Ventricle Mildly impaired LV function with EF between 45-50% Right Ventricle Normal right ventricular size. RVSP= 35mmhg. Right Atrium Normal right atrial size. Left Atrium Normal left atrial size. LA volume index= 28ml/m2 Mitral Valve Structurally normal mitral valve. Mild MR. Aortic Valve Trileaflet aortic valve. No aortic valve stenosis or regurgitation. Tricuspid Valve Structurally normal tricuspid valve. Mild TR. Pulmonic Valve Pulmonic valve not well visualized. No pulmonic regurgitation. Pericardium Not well visualized. Aorta Normal size aortic root . CONCLUSIONS Mildly impaired LV function. Ejection fraction is 45-50% Previewed by: Dr. Srinivas Izaguirre MD (Electronically Signed) Final Date: 23 April 2023 07:39
[2023-04-23] MEDS ORDERED: ATORVASTATIN 10 MG TAB PO SCH ×2 (09:00→21:00)
--- NOTE | 2023-04-23 10:23 | P.PN ---
Subjective HISTORY OF PRESENT ILLNESS: This is a 82-year-old male with a past medical history significant for coronary artery disease with previous stenting, hypertension, hyperlipidemia, and pacemaker implantation. Patient follows in the office with Dr. Peter. We have been asked to see the patient in consultation for chest pain and abnormal EKG. Patient examined at the bedside. Patient states he has been having some upper respiratory symptoms for the past week. He reports a cough with sputum production. He denied any fever or chills. He denied having any shortness of breath. He reports yesterday he began to have a lot of chest pressure. He also reports over the past week he has not been able to do a lot of physical work outside due to "feeling bad" but denies any chest pain or pressure. He states he has had one stent placed previously which was at least 10 years ago. He denies having any recent stress testing. * EKG reveals sinus mechanism with T-wave inversions in inferior lateral leads. Previous EKG reveals T-wave inversions in inferior leads only. * Chest xray negative for acute process * Laboratory data: WBC 5.8. Hemoglobin 13.7. Platelet count 101. Sodium 136. Potassium 4.5. BUN 23. Creatinine 1.0. Magnesium 2.0. Troponin negative 3. ProBNP 323. * Current home cardiac medications include lisinopril 40 mg daily, atenolol 25 mg daily, aspirin 81 mg daily, and Crestor 5 mg every 48 hours Addendum entered and electronically signed by Krissy Dumont NP-C 04/22/23 1 0:28: Records from cardiology office reviewed. Patient had an EKG performed in February 24 which revealed T-wave inversions in inferior lateral leads so EKG abnormalities noted on this admission are not new. Patient's last Lexiscan stress test was in January 2021 Patient will be scheduled for Lexiscan tomorrow Discontinue IV heparin Nothing by mouth at midnight Further recommendations pending patient's course 04/23/2023 Patient examined this morning. Patient is sitting up in the chair. Patient denies chest pain or pressure. He denies shortness of breath. Vital signs are stable. Echocardiogram completed revealing ejection fraction 45-50%, mild MR, mild TR. PHYSICAL EXAM: VITAL SIGNS: Reviewed. GENERAL: Well-developed in no acute distress. HEENT: Head is normocephalic. Pupils are equal, round. Sclerae anicteric. Mucous membranes of the mouth are moist. Neck supple. No JVD or thyromegaly LUNGS: Respirations even and unlabored. Lungs essentially clear to auscultation bilaterally. HEART: Regular rate and rhythm. S1 and S2 heard. ABDOMEN: Soft. Nondistended. Nontender. EXTREMITIES: Normal range of motion. No clubbing or cyanosis. Peripheral pulses intact. No lower extremity edema NEUROLOGIC: Awake and alert. Oriented x 3. ASSESSMENT: Upper respiratory infection Chest pain with abnormal EKG revealing T-wave inversions in inferior lateral leads, seen on previous EKG from office records in February 2023 Coronary artery disease with previous stenting, exact details unknown Hypertension Hyperlipidemia History of pacemaker implantation PLAN: Continue current cardiac medications Patient undergo Lexiscan stress test today If negative, the patient may be discharged home today from a cardiac standpoint and follow up in the office with Dr. Peter Nurse practitioner note has been reviewed by physician. Signing provider agrees with the documented findings, assessment, and plan of care. Objective - Vital Signs Vital signs: Vital Signs Temp 97.8 F 04/23/23 07:00 Pulse 58 L 04/23/23 07:00 Resp 16 04/23/23 07:00 BP 128/69 04/23/23 07:00 Pulse Ox 97 04/23/23 07:00 FiO2 Intake & Output 04/22/23 04/23/23 04/23/23 18:59 06:59 18:59 Intake Total 45.127 Balance 45.127 Intake: Intake, IV Titration 45.127 Amount Heparin Sod,Pork in 0.45% 45.127 NaCl 25,000 unit In 0.45 % NaCl 1 250ml.bag @ 12 UNITS/KG/HR 7.076 mls/hr IV .Q24H [facility] Rx#: [id number] Other: # Voids 1 2 # Bowel Movements 1 - Labs CBC & Chem 7: 04/22/23 07:14 04/22/23 07:14 Labs: Abnormal Lab Results - Last 24 Hours (Table) 04/22/23 04/22/23 04/22/23 Range/Units 07:14 07:14 11:57 Glucose 163 H (70-110) mg/dL POC Glucose (mg/dL) 426 H (70-110) mg/dL Hemoglobin A1c 8.5 H (<=6.0) % 04/22/23 04/22/23 04/22/23 Range/Units 16:59 17:19 17:38 Glucose (70-110) mg/dL POC Glucose (mg/dL) 61 L 61 L 68 L (70-110) mg/dL Hemoglobin A1c (<=6.0) % 04/22/23 Range/Units 20:42 Glucose (70-110) mg/dL POC Glucose (mg/dL) 186 H (70-110) mg/dL Hemoglobin A1c (<=6.0) %
[2023-04-23] MEDS ORDERED: REGADENOSON 0.4 MG/5 ML SYRINGE IV ONE (10:30)
[2023-04-23] MEDS: LORATADINE 10 MG TAB PO SCH (10:40)
[2023-04-23] MEDS: ASPIRIN 81 MG PO SCH (10:40)
[2023-04-23] MEDS: FLUTICASONE 50MCG/SPRAY NASAL 16GM EA NOSTRIL SCH (10:41)
--- NOTE | 2023-04-23 11:20 | NM ---
EXAMINATION TYPE: NM stress lexiscan cardiolite DATE OF EXAM: 04/23/2023 COMPARISON: NONE CLINICAL INDICATION: Male, 82 years old with history of CP; TECHNIQUE: After the intravenous administration of 9.6 mCi Tc 99m Sestamibi - Cardiolite resting SPE CT images acquired 60 minutes post injection. The patient received 0.4mg Lexiscan, 23.8 mCi Tc 99m Sestamibi - Stress images obtained [address] injection FINDINGS: Review of stress and rest SPECT images demonstrates decreased perfusion along the inferior wall, late ral wall and cardiac apex on stress images. Gated analysis shows normal wall motion with an estimated left ventricular ejection fraction of 60 %. IMPRESSION: Findings felt to reflect stress-induced ischemia as discussed above.
[2023-04-23 12:05] LABS: Glucose,Whole Blood 159 mg/dL (70-110)
[2023-04-23] MEDS ORDERED: ALPRAZolam 0.5 MG TAB PO PRN (13:58)
[2023-04-23] MEDS ORDERED: ALPRAZolam 0.25 MG TAB PO PRN (13:58)
[2023-04-23] MEDS ORDERED: NITROGLYCERIN SL TABS 0.4 MG TAB SUBLINGUAL PRN (13:58)
--- NOTE | 2023-04-23 14:25 | P.PN ---
Subjective Progress Note Date: 04/23/23 This is an 82 year old male with medical history of chest pain, hypertension, hyperlipidemia, gastroesophageal reflux disease, pyloric stenosis with prior surgery. Patient also has history of cardiac stent 10 years ago and has a permanent pacemaker. Patient presents with more upper respiratory like symptoms that has since progressed to chest pressure. Patient says he was outside walking and was able to catch his breath he's been experiencing intermittent chest pressure over the last week. Having intermittent cough also with mucoid sputum. Denies any associated symptoms denying any nausea vomiting diarrhea diaphoresis patient denies having any dizziness or lightheadedness. Chest x-ray on admission negative for acute cardiopulmonary disease. EKG showing atrial pacemaker left ventricular hypertrophy and ST to T wave change. This is an abnormal EKG. Heart rate is 49. Patient was evaluated in the ER started on IV heparin drip and was admitted to the hospital in observation with cardiology consultation. Blood pressure is on the lower side 107 systolic recommending at this time to hold atenolol and lisinopril. 04/23/2023 Patient is evaluated today sitting up in the bed. Patient has been eating diet. He had a Lexiscan stress test today which showed an EF of 60%, Lexiscan was positive for reversible ischemia and patient will undergo cardiac catheterization Dr. Peter tomorrow. At time of evaluation his chest pressure is currently resolved. He also reports improvement in his upper respiratory symptoms with the addition of Flonase and Claritin. Review of Systems Constitutional: Denied any fatigue denied any fever. Cardio vascular: denied any chest pain, palpitations Gastrointestinal: denied any nausea, vomiting, diarrhea Pulmonary: Denied any shortness of breath cough Neurologic denied any new focal deficits All inpatient medications were reviewed and appropriate changes in these medications as dictated in the interval history and assessment and plan. PHYSICAL EXAMINATION: GENERAL: The patient is alert and oriented x3, not in any acute distress. Well developed, well nourished. HEENT: Pupils are round and equally reacting to light. EOMI. No scleral icterus. No conjunctival pallor. Normocephalic, atraumatic. No pharyngeal erythema. No thyromegaly. CARDIOVASCULAR: S1 and S2 present. No murmurs, rubs, or gallops. PULMONARY: Chest is clear to auscultation, no wheezing or crackles. ABDOMEN: Soft, nontender, nondistended, normoactive bowel sounds. No palpable organomegaly. MUSCULOSKELETAL: No joint swelling or deformity. EXTREMITIES: No cyanosis, clubbing, or pedal edema. NEUROLOGICAL: Gross neurological examination did not reveal any focal deficits. SKIN: No rashes. Assessment Chest pain and abnormal EKG, stress test positive for reversible ischemia Acute sinusitis likely ALLERGIC in nature patient be treated with Claritin and Flonase History hypertension History of hyperlipidemia Gastroesophageal reflux disease History of pyloric stenosis with surgery History of coronary artery disease with prior cardiac stenting Permanent pacemaker GI prophylaxis DVT prophylaxis IV heparin Full code Plan Claritin and flonase added. Patient did undergo cardiac catheterization tomorrow with Dr. Peter Recommending to stop the atenolol and lisinopril as patient is bradycardic and blood pressure is low normal Patient will be NPO after midnight The impression and plan of care has been dictated by Kylie Hager, Nurse Practitioner as directed. Dr. Jono MD I have performed a history and physical examination and medical decision making of this patient, discussed the same with the dictator, and agree with the dictators assessment and plan as written, documented as a scribe. Based on total visit time, I have performed more than 50% of this visit. Objective - Vital Signs Vital signs: Vital Signs Temp 97.8 F 04/23/23 07:00 Pulse 58 L 04/23/23 07:00 Resp 16 04/23/23 07:00 BP 128/69 04/23/23 07:00 Pulse Ox 97 04/23/23 07:00 FiO2 Intake & Output 04/22/23 04/23/23 04/23/23 18:59 06:59 18:59 Intake Total 45.127 Balance 45.127 Intake: Intake, IV Titration 45.127 Amount Heparin Sod,Pork in 0.45% 45.127 NaCl 25,000 unit In 0.45 % NaCl 1 250ml.bag @ 12 UNITS/KG/HR 7.076 mls/hr IV .Q24H GIDEON Rx#: [id number] Other: # Voids 1 2 # Bowel Movements 1 - Labs CBC & Chem 7: 04/22/23 07:14 04/22/23 07:14 Labs: Abnormal Lab Results - Last 24 Hours (Table) 04/22/23 04/22/23 04/22/23 Range/Units 07:14 16:59 17:19 POC Glucose (mg/dL) 61 L 61 L (70-110) mg/dL Hemoglobin A1c 8.5 H (<=6.0) % 04/22/23 04/22/23 04/23/23 Range/Units 17:38 20:42 12:04 POC Glucose (mg/dL) 68 L 186 H 159 H (70-110) mg/dL Hemoglobin A1c (<=6.0) % Assessment and Plan Time with Patient: Less than 30
[2023-04-23 17:04] LABS: Glucose,Whole Blood 137 mg/dL (70-110)
[2023-04-23 22:01] LABS: Glucose,Whole Blood 186 mg/dL (70-110)
[2023-04-23] MEDS: SODIUM CHLORIDE 0.9% 1,000 ML in EMPTY BAG 1 BAG IV SCH (22:45)
[2023-04-24] MEDS ORDERED: ATORVASTATIN 80 MG TAB PO ONE (05:00)
[2023-04-24] MEDS ORDERED: ASPIRIN 325 MG TAB PO ONE (05:00)
[2023-04-24] MEDS: INSULIN ASPART (NovoLOG) 100 UNIT/ML VIAL SQ SCH ×7 (06:33→21:58)
[2023-04-24] MEDS ORDERED: HEPARIN SODIUM,PORCINE 10,000 UNIT in SODIUM CHLORIDE 0.9% 1,000 ML IRRIGATION PRN (07:00)
[2023-04-24] MEDS ORDERED: HEPARIN SODIUM,PORCINE (1 ML) 2,500 UNIT in SODIUM CHLORIDE 0.9% 250 ML IRRIGATION PRN (07:00)
[2023-04-24 10:12] LABS: Glucose,Whole Blood 119 mg/dL (70-110)
[2023-04-24] MEDS ORDERED: HEPARIN SODIUM 1,000 UN/ML (10ML VL) ONE (11:46)
[2023-04-24] MEDS ORDERED: fentaNYL (PF) 50 MCG/ML 2 ML AMP ONE (11:46)
[2023-04-24] MEDS ORDERED: VERAPAMIL 2.5 MG/ML 2 ML AMP ONE (11:46)
[2023-04-24] MEDS ORDERED: IV FLUID CONTINUATION 1,000 ML IV ONE (12:01)
[2023-04-24] MEDS ORDERED: fentaNYL (PF) 50 MCG/ML 2 ML AMP IVP ONE (12:11)
[2023-04-24] MEDS ORDERED: LIDOCAINE 1% INJ 10MG/ML (5 ML VIAL-PF) SQ ONE (12:19)
[2023-04-24] MEDS ORDERED: LIDOCAINE 2% (PF) 20 MG/ML 2 ML AMP SQ ONE (12:19)
[2023-04-24] MEDS ORDERED: VERAPAMIL SYRINGE (5 MG/10 ML) INTRAARTER ONE (12:20)
[2023-04-24] MEDS: HEPARIN SODIUM 1,000 UN/ML (10ML VL) IVP ONE ×2 (12:26→13:08)
[2023-04-24] MEDS ORDERED: CLOPIDOGREL 75 MG TAB ONE (12:34)
[2023-04-24] MEDS ORDERED: CLOPIDOGREL 75 MG TAB PO ONE (12:40)
[2023-04-24] MEDS ORDERED: NITROGLYCERIN 1000MCG/10ML SYRINGE INTRAARTER ONE (12:45)
[2023-04-24] MEDS ORDERED: IOPAMIDOL-370 100ML BTL INJ ONE ×2 (12:50→13:03)
[2023-04-24] MEDS ORDERED: ATROPINE SULFATE 0.1 MG/ML 10ML SYRINGE IV PRN (13:24)
[2023-04-24] MEDS ORDERED: RX INFO: IV CONTRAST WAS GIVEN 1 EACH MISC MISCELLANE PRN (13:24)
[2023-04-24] MEDS ORDERED: NITROGLYCERIN SL TABS 0.4 MG TAB SUBLINGUAL PRN (13:24)
[2023-04-24] MEDS ORDERED: MAG HYDROX/AL HYDROX/SIMETH 30 ML CUP PO PRN (13:24)
[2023-04-24] MEDS ORDERED: ZOLPIDEM 5 MG TAB PO PRN (13:24)
[2023-04-24] MEDS ORDERED: SODIUM CHLORIDE 0.9% 1,000 ML in EMPTY BAG 1 BAG IV SCH (13:30)
--- NOTE | 2023-04-24 13:33 | P.CARDCATH ---
Date of Procedure: 04/24/23 Description of Procedure: Cardiac Catheterization: The patient is an 82-year-old male, with a history of hypertension, hyperlipidemia, prior PCI in 2007 who presented with symptoms of chest discomfort, had an abnormal MPI. Recommendations were made regarding cardiac catheterization, the risks and the complications were discussed with the patient who is in full understanding and agreement. Procedure Description: Patient was brought to center medical and lab director in fasting semi-sedated state after receiving Fentanyl and Benadryl achieiving moderate conscious sedated state. Using Xylocaine Anesthesia and Seldinger technique, a 6-Austrian sheath was introduced in the right radial artery . Subsequently, selective coronary angiography was performed using a 5-Austrian 3.5 bend Daisy catheter. Multiple views of the coronary artery including hemiaxial views were obtained. The right Daisy catheter was used to cross the aortic valve and LVEDP was calculated. PCI: A 6-Austrian 0.75 AL guiding catheter was introduced and after cannulating the right coronary ostium a 0.014 BMW J wire was positioned in the distal RCA, subsequently 2.5 x 12 mm NC Treck balloon was advanced and 2 inflations at 8 radha were done. Subsequently a [facility] intravascular ultrasound catheter was introduced and images were obtained. After removing the catheter 3.5 x 38 mm Xience nikki point stent was deployed to 16 radha, after removing the balloon a 3.75 x 15 mm NC Treck balloon was advanced and multiple inflations were done. After removing the wire images were obtained and revealed successful angioplasty. Following that, catheter and sheath were removed. Hemostasis was obtained with deployment of TR band . There was no immediate complication. Patient was returned to room in stable condition. Of note, the patient received a total of 6000 units of intravenous heparin as well as intra-arterial verapamil. He received a loading dose of clopidogrel, his EKG showed changes with the inflations that resolved at the end of the procedure. He had no chest discomfort. His ACT was monitored. Findings: Fluoroscopy: There is severe calcification of the LAD and the left main. Left main: This is a large size vessel, bifurcating into LAD and left circumflex, left main has no obstructive disease LAD: This is a large size vessel, reaching to the apex tapering down distally, giving rise to 3 obtuse marginal branch, the LAD has diffuse disease throughout its course with area of stenosis up to 40-50% in the midsegment Left circumflex: This is a nondominant vessel, giving rise to a large obtuse marginal branch that has mild intimal disease of 20%, the risks of the vessel has no high-grade stenosis RCA: This is a large dominant vessel the midsegment has severe in-stent restenosis of 99% with slow flow in the PDA. There is collaterals from the LAD to the right PDA. Left Ventriculogram: Not performed Hemodynamics: There was no gradient across the aortic valve, LVEDP was 16-18 mmHg Conclusion: 1. Severe stenosis in the mid RCA 2. Mild disease in the LAD and left circumflex 3. Calcified LAD and left main 4. Successful stenting of the mid RCA with reduction of stenosis from 99% to less than 5% with intravascular ultrasound imaging Recommendations: The patient will continue on aspirin and clopidogrel for 6 months without interruption in addition to aggressive coronary risks modification. The findings and the recommendations were discussed with the patient and the family and they were in full understanding and agreement. Duration of sedation is 49 minutes.
--- NOTE | 2023-04-24 14:04 | P.PN ---
Subjective Progress Note Date: 04/24/23 This is an 82 year old male with medical history of chest pain, hypertension, hyperlipidemia, gastroesophageal reflux disease, pyloric stenosis with prior surgery. Patient also has history of cardiac stent 10 years ago and has a permanent pacemaker. Patient presents with more upper respiratory like symptoms that has since progressed to chest pressure. Patient says he was outside walking and was able to catch his breath he's been experiencing intermittent chest pressure over the last week. Having intermittent cough also with mucoid sputum. Denies any associated symptoms denying any nausea vomiting diarrhea diaphoresis patient denies having any dizziness or lightheadedness. Chest x-ray on admission negative for acute cardiopulmonary disease. EKG showing atrial pacemaker left ventricular hypertrophy and ST to T wave change. This is an abnormal EKG. Heart rate is 49. Patient was evaluated in the ER started on IV heparin drip and was admitted to the hospital in observation with cardiology consultation. Blood pressure is on the lower side 107 systolic recommending at this time to hold atenolol and lisinopril. 04/23/2023 Patient is evaluated today sitting up in the bed. Patient has been eating diet. He had a Lexiscan stress test today which showed an EF of 60%, Lexiscan was positive for reversible ischemia and patient will undergo cardiac catheterization Dr. Peter tomorrow. At time of evaluation his chest pressure is currently resolved. He also reports improvement in his upper respiratory symptoms with the addition of Flonase and Claritin. 04/24/2023 Patient is evaluated today on the medical floor. He denies any chest pain or shortness of breath. Continues on Claritin and Flonase for the upper respiratory symptoms. Patient did undergo cardiac catheterization today with Dr. Peter and had a stent 1 placed to the RCA. There was findings of severe stenosis in the mid RCA and after stenting there is reduction of stenosis from 99% to 5%. There is mild disease in the LAD and left circumflex and a calcified left main and LAD. He is on aspirin 81 mg daily as well as Plavix 75 mg daily. Hemodynamically he is stable. Review of Systems Constitutional: Denied any fatigue denied any fever. Cardio vascular: denied any chest pain, palpitations Gastrointestinal: denied any nausea, vomiting, diarrhea Pulmonary: Denied any shortness of breath cough Neurologic denied any new focal deficits All inpatient medications were reviewed and appropriate changes in these medications as dictated in the interval history and assessment and plan. PHYSICAL EXAMINATION: GENERAL: The patient is alert and oriented x3, not in any acute distress. Well developed, well nourished. HEENT: Pupils are round and equally reacting to light. EOMI. No scleral icterus. No conjunctival pallor. Normocephalic, atraumatic. No pharyngeal erythema. No thyromegaly. CARDIOVASCULAR: S1 and S2 present. No murmurs, rubs, or gallops. PULMONARY: Chest is clear to auscultation, no wheezing or crackles. ABDOMEN: Soft, nontender, nondistended, normoactive bowel sounds. No palpable organomegaly. MUSCULOSKELETAL: No joint swelling or deformity. EXTREMITIES: No cyanosis, clubbing, or pedal edema. NEUROLOGICAL: Gross neurological examination did not reveal any focal deficits. SKIN: No rashes. Assessment Chest pain and abnormal EKG, stress test positive for reversible ischemia coronary artery disease status post cardiac catheterization with stenting to the RCA Acute sinusitis likely ALLERGIC in nature patient be treated with Claritin and Flonase History hypertension History of hyperlipidemia Gastroesophageal reflux disease History of pyloric stenosis with surgery History of coronary artery disease with prior cardiac stenting Permanent pacemaker GI prophylaxis DVT prophylaxis IV heparin Full code Plan Claritin and flonase added. S/P stent to the RCA patient is on aspirin/plavix therapy as well as statin. Lisinopril has been resumed blood pressure improved. Patient to d/c home in the next 24 hours will be monitored overnight on cardiac telemetry. The impression and plan of care has been dictated by Kylie Hager Nurse Practitioner as directed. Dr. Jono MD I have performed a history and physical examination and medical decision making of this patient, discussed the same with the dictator, and agree with the dictators assessment and plan as written, documented as a scribe. Based on total visit time, I have performed more than 50% of this visit. Objective - Vital Signs Vital signs: Vital Signs Temp 98.0 F 04/24/23 07:00 Pulse 59 L 04/24/23 08:00 Resp 16 04/24/23 08:00 BP 125/69 04/24/23 07:00 Pulse Ox 97 04/24/23 07:00 FiO2 Intake & Output 04/23/23 04/24/23 04/24/23 18:59 06:59 18:59 Intake Total 150 Balance 150 Intake: IV 150 Other: # Voids 1 3 3 # Bowel Movements 1 - Labs CBC & Chem 7: 04/22/23 07:14 04/22/23 07:14 Labs: Abnormal Lab Results - Last 24 Hours (Table) 04/23/23 04/23/23 04/24/23 Range/Units 17:03 22:00 09:21 POC Glucose (mg/dL) 137 H 186 H 119 H (70-110) mg/dL Assessment and Plan Time with Patient: Less than 30
[2023-04-24 14:14] VITALS: BMI 23.8
--- NOTE | 2023-04-24 14:38 | CA ---
Lexiscan Nuclear Stress Test Report Name: Isaac Raza Exam Date: 04/23/2023 09:05 Exam Location: [place] Stress Ht (in): 62 Wt (lb): 130 BSA: 1.59 Ordering Phys: Krissy Dumont Referring Phys: BENJAMIN,, Technologist: TENA,, Age: 82 Gender: M : 1940 Procedure CPT: Indications: Reflex order-Stress test ICD-10 Codes: Patient History: Chest Pain Medications: Meds past 24 hrs: Pretest Chest Pain: STRESS TEST Lexiscan Protocol Exercise Duration (min:sec): 01:[address] Depressions (mm): Angina Score: Thompson Score: Resting HR (bpm): 50 Peak HR (bpm): 79 Resting BP (mmHg): 134 / 70 Peak BP (mmHg): 121 / 69 MPHR: 139 Target HR: 118 % MPHR: 57 METS: 1.0 Total Dose: Peak Dose: Atropine: Double Product: 9559 BP Response: Stress Termination: INFUSION COMPLETE Stress Symptoms: NO SYMPTOMS Stress Summary: ECG ANALYSIS Resting ECG: Stress ECG: CONCLUSIONS Non-diagnostic stress test. Dr. Srinivas Izaguirre MD (Electronically Signed) Final Date: 24 April 2023 14:37
[2023-04-24] MEDS: LORATADINE 10 MG TAB PO SCH (15:43)
[2023-04-24] MEDS: ASPIRIN 81 MG PO SCH (15:43)
[2023-04-24] MEDS: FLUTICASONE 50MCG/SPRAY NASAL 16GM EA NOSTRIL SCH (15:43)
[2023-04-24 17:44] LABS: Glucose,Whole Blood 129 mg/dL (70-110)
[2023-04-24] MEDS: SODIUM CHLORIDE 0.9% 1,000 ML in EMPTY BAG 1 BAG IV SCH (20:38)
[2023-04-24] MEDS: lisinopriL 5 MG TAB PO SCH (20:38)
[2023-04-24] MEDS: METOPROLOL TARTRATE 25 MG TAB PO SCH (20:38)
[2023-04-24] MEDS ORDERED: ATORVASTATIN 40 MG TAB PO SCH (21:00)
[2023-04-24 21:49] LABS: Glucose,Whole Blood 175 mg/dL (70-110)
[2023-04-25 06:01] LABS: Glucose,Whole Blood 114 mg/dL (70-110)
[2023-04-25] MEDS: INSULIN ASPART (NovoLOG) 100 UNIT/ML VIAL SQ SCH ×2 (06:02→08:19)
[2023-04-25 07:04] LABS: African American GFR (CKD) 88 (>60 ml/min/1.73 sqM); Anion Gap 7 mmol/L; Blood Urea Nitrogen 20 mg/dL (9-20); Calcium 8.9 mg/dL (8.4-10.2); Carbon Dioxide 25 mmol/L (22-30); Chloride 105 mmol/L (98-107); Glucose 117 mg/dL (74-99); Non-African American GFR(CKD) 76 (>60 ml/min/1.73 sqM); Potassium 3.9 mmol/L (3.5-5.1); Sodium 137 mmol/L (137-145)
[2023-04-25 08:00] VITALS: BP 123/55; PULSE 61; RESP 18; TEMP 97.5
[2023-04-25] MEDS: LORATADINE 10 MG TAB PO SCH (08:37)
[2023-04-25] MEDS: ASPIRIN 81 MG PO SCH (08:37)
[2023-04-25] MEDS: lisinopriL 5 MG TAB PO SCH (08:37)
[2023-04-25] MEDS: METOPROLOL TARTRATE 25 MG TAB PO SCH (08:37)
[2023-04-25] MEDS: FLUTICASONE 50MCG/SPRAY NASAL 16GM EA NOSTRIL SCH (08:38)
[2023-04-25] MEDS ORDERED: CLOPIDOGREL 75 MG TAB PO SCH (09:00)
--- NOTE | 2023-04-25 10:38 | P.PN ---
Subjective HISTORY OF PRESENT ILLNESS: This is a 82-year-old male with a past medical history significant for coronary artery disease with previous stenting, hypertension, hyperlipidemia, and pacemaker implantation. Patient follows in the office with Dr. Peter. We have been asked to see the patient in consultation for chest pain and abnormal EKG. Patient examined at the bedside. Patient states he has been having some upper respiratory symptoms for the past week. He reports a cough with sputum production. He denied any fever or chills. He denied having any shortness of breath. He reports yesterday he began to have a lot of chest pressure. He also reports over the past week he has not been able to do a lot of physical work outside due to "feeling bad" but denies any chest pain or pressure. He states he has had one stent placed previously which was at least 10 years ago. He denies having any recent stress testing. * EKG reveals sinus mechanism with T-wave inversions in inferior lateral leads. Previous EKG reveals T-wave inversions in inferior leads only. * Chest xray negative for acute process * Laboratory data: WBC 5.8. Hemoglobin 13.7. Platelet count 101. Sodium 136. Potassium 4.5. BUN 23. Creatinine 1.0. Magnesium 2.0. Troponin negative 3. ProBNP 323. * Current home cardiac medications include lisinopril 40 mg daily, atenolol 25 mg daily, aspirin 81 mg daily, and Crestor 5 mg every 48 hours Addendum entered and electronically signed by Krissy Dumont NP-C 04/22/23 1 0:28: Records from cardiology office reviewed. Patient had an EKG performed in February 24 which revealed T-wave inversions in inferior lateral leads so EKG abnormalities noted on this admission are not new. Patient's last Lexiscan stress test was in January 2021 Patient will be scheduled for Lexiscan tomorrow Discontinue IV heparin Nothing by mouth at midnight Further recommendations pending patient's course 04/23/2023 Patient examined this morning. Patient is sitting up in the chair. Patient denies chest pain or pressure. He denies shortness of breath. Vital signs are stable. Echocardiogram completed revealing ejection fraction 45-50%, mild MR, mild TR. 04/24/2023 patient is status post cardiac catheterization after he had an abnormal Lia scan. Cardiac catheterization revealing severe stenosis in the mid RCA, mild disease in the LAD and left circumflex, calcified LAD and left main. Patient underwent stenting of the mid RCA. Patient examined this morning at the bedside per patient is sitting on the side of the bed eating breakfast. He denies chest pain or pressure. He denies shortness of breath. Vital signs are stable. PHYSICAL EXAM: VITAL SIGNS: Reviewed. GENERAL: Well-developed in no acute distress. HEENT: Head is normocephalic. Pupils are equal, round. Sclerae anicteric. Mucous membranes of the mouth are moist. Neck supple. No JVD or thyromegaly LUNGS: Respirations even and unlabored. Lungs essentially clear to auscultation bilaterally. HEART: Regular rate and rhythm. S1 and S2 heard. ABDOMEN: Soft. Nondistended. Nontender. EXTREMITIES: Normal range of motion. No clubbing or cyanosis. Peripheral pul ses intact. No lower extremity edema NEUROLOGIC: Awake and alert. Oriented x 3. ASSESSMENT: Upper respiratory infection Chest pain with abnormal EKG revealing T-wave inversions in inferior lateral leads, seen on previous EKG from office records in February 2023 status post abnormal Lexiscan with subsequent cardiac catheterization and stenting of the mid RCA Coronary artery disease with previous stenting, exact details unknown Hypertension Hyperlipidemia History of pacemaker implantation PLAN: Continue current cardiac medications Continue dual antiplatelet therapy with aspirin and Plavix Continue atorvastatin 40 mg at night Patient may be discharged home today from a cardiac standpoint Nurse practitioner note has been reviewed by physician. Signing provider agrees with the documented findings, assessment, and plan of care. Objective - Vital Signs Vital signs: Vital Signs Temp 97.5 F L 04/25/23 07:00 Pulse 61 04/25/23 07:00 Resp 18 04/25/23 07:00 BP 123/55 04/25/23 07:00 Pulse Ox 99 04/25/23 07:00 FiO2 Intake & Output 04/24/23 04/25/23 04/25/23 18:59 06:59 18:59 Intake Total 150 Balance 150 Weight 58.967 kg Intake: IV 150 Other: # Voids 3 1 # Bowel Movements 1 - Labs CBC & Chem 7: 04/22/23 07:14 04/25/23 05:57 Labs: Abnormal Lab Results - Last 24 Hours (Table) 04/24/23 04/24/23 04/25/23 Range/Units 17:42 21:47 05:57 Glucose 117 H (74-99) mg/dL POC Glucose (mg/dL) 129 H 175 H (70-110) mg/dL 04/25/23 Range/Units 05:59 Glucose (74-99) mg/dL POC Glucose (mg/dL) 114 H (70-110) mg/dL
--- NOTE | 2023-04-30 08:50 | P.DS ---
Providers Date of admission: 04/21/23 19:19 Attending physician: Anabell Romero Consults: 04/21/23 19:18 Consult Physician Urgent Consulting Provider: Cardiology Shahida Consult Reason/Comments: acute chest pain, abn ekg Do you want consulting provider notified?: Yes 04/24/23 13:24 Consult Physician Routine Consulting Provider: Tonja Pinedo Consult Reason/Comments: Post Interventional Patient Do you want consulting provider notified?: Already Contacted Primary care physician: Suzanne Whelan [facility] Course: Final Diagnosis Chest pain and abnormal EKG, stress test positive for reversible ischemia coronary artery disease status post cardiac catheterization with stenting to the RCA Diabetes Mellitus type 2 with hemoglobin A1C 8.5. Acute sinusitis likely ALLERGIC in nature patient be treated with Claritin and Flonase History hypertension History of hyperlipidemia Gastroesophageal reflux disease History of pyloric stenosis with surgery History of coronary artery disease with prior cardiac stenting Permanent pacemaker GI prophylaxis DVT prophylaxis IV heparin Full code Discharge Disposition Patient is stable for discharge home. Patient has been started on dual antiplatelet therapy with plavix and aspirin 81 mg daily. Patient is status post stent to the RCA. Recommending follow up with embossing press operator apprentice Dr. Peter in 1 week. Patient to also follow upw [facility] PCP Dr. Whelan in 1 to 2 days. Recommending to continue on claritin and flonase for the allergic sinusitis. Repeat labs in 2 to 3 days. Hospital Course This is an 82 year old male with medical history of chest pain, hypertension, hyperlipidemia, gastroesophageal reflux disease, pyloric stenosis with prior surgery. Patient also has history of cardiac stent 10 years ago and has a permanent pacemaker. Patient presents with more upper respiratory like symptoms that has since progressed to chest pressure. Patient says he was outside walking and was able to catch his breath he's been experiencing intermittent chest pressure over the last week. Having intermittent cough also with mucoid sputum. Denies any associated symptoms denying any nausea vomiting diarrhea diaphoresis patient denies having any dizziness or lightheadedness. Chest x-ray on admission negative for acute cardiopulmonary disease. EKG showing atrial pacemaker left ventricular hypertrophy and ST to T wave change. This is an abnormal EKG. Heart rate is 49. Patient was evaluated in the ER started on IV heparin drip and was admitted to the hospital in observation with cardiology consultation. Patients blood pressure was low normal on admission and had episodes of bradycardia for this reason atenolol and lisinopril were held. He had a positive lexiscan stress test which showed an EF of 60%, Lexiscan was positive for reversible ischemia. Patient did undergo cardiac catheterization today with Dr. Peter and had a stent 1 placed to the RCA. There was findings of severe stenosis in the mid RCA and after stenting there is reduction of stenosis from 99% to 5%. There is mild disease in the LAD and left circumflex and a calcified left main and LAD. He is on aspirin 81 mg daily as well as Plavix 75 mg daily. Hemodynamically he is stable. Continues on Claritin and Flonase for the upper respiratory symptoms and reports improvement in the sinus congestion. Patient is chest pain free. No shortness of breath. His lungs are clear and S1 S2 auscultated. The right radial access site is approximated and soft with +2 pulses. His hemoglobin A1C found to be 8.5, has been told he is a diabetic in the past by his PCP with elevated A1C he is started on Farxiga on discharge. Instructed on diet modifications. Resumed on beta nayana metoprolol 25 BID and lisinopril decreased to 5 BID. Electrolyes and kidney function are within normal limits. He is discharged home with follow up with PCP and cardiology. Please see medication reconciliation for a list of current medication. Thank you for allowing us to participate in the care of this patient. The impression and plan of care has been dictated by Kylie Hager, Nurse Practitioner as directed. Dr. Jono MD I have performed a history and physical examination and medical decision making of this patient, discussed the same with the dictator, and agree with the dictators assessment and plan as written, documented as a scribe. Based on total visit time, I have performed more than 50% of this visit. Patient Condition at Discharge: Fair Plan - Discharge Summary Discharge Rx Participant: No New Discharge Prescriptions: New Loratadine [Claritin] 5 mg PO DAILY #0 tab Metoprolol Tartrate [Lopressor] 25 mg PO BID #60 tab Nitroglycerin Sl Tabs [Nitrostat] 0.4 mg SUBLINGUAL Q5M PRN #20 tab PRN Reason: Chest Pain lisinopriL [Zestril] 5 mg PO BID #60 tab Dapagliflozin Propanediol [Farxiga] 10 mg PO DAILY #30 tablet Fluticasone Nasal [place] [Flonase Nasal [place]] 2 spray EA NOSTRIL DAILY ml Clopidogrel [Plavix] 75 mg PO DAILY #30 tab Continue Aspirin [Adult Low Dose Aspirin EC] 81 mg PO DAILY Rosuvastatin Calcium [Crestor] 5 mg PO Q48H Discontinued atenoloL 25 mg PO DAILY lisinopriL 40 mg PO DAILY Discharge Medication List Aspirin [Adult Low Dose Aspirin EC] 81 mg PO DAILY 10/18/16 [History] Rosuvastatin Calcium [Crestor] 5 mg PO Q48H 03/01/17 [History] Clopidogrel [Plavix] 75 mg PO DAILY #30 tab 04/25/23 [Rx] Dapagliflozin Propanediol [Farxiga] 10 mg PO DAILY #30 tablet 04/25/23 [Rx] Fluticasone Nasal [place] [Flonase Nasal [place]] 2 spray EA NOSTRIL DAILY ml 04/25/23 [Rx] Loratadine [Claritin] 5 mg PO DAILY #0 tab 04/25/23 [Rx] Metoprolol Tartrate [Lopressor] 25 mg PO BID #60 tab 04/25/23 [Rx] Nitroglycerin Sl Tabs [Nitrostat] 0.4 mg SUBLINGUAL Q5M PRN #20 tab 04/25/23 [Rx] lisinopriL [Zestril] 5 mg PO BID #60 tab 04/25/23 [Rx] Follow up Appointment(s)/Referral(s): Zachariah Peter MD [STAFF PHYSICIAN] - 1 Week (Office will call with appointment time and date.) Suzanne Whelan MD [Primary Care Provider] - 1-2 days Ambulatory/Diagnostic Orders: Basic Metabolic Panel [LAB.AMB] Time Frame: 3 Days, Location: None Selected Patient Instructions/Handouts: *Surgery [facility] - After Heart Catheterization - Rn Diabetes Educator Instructions, Type 2 Diabetes in Adults: New Diagnosis (DC) Discharge Disposition: HOME SELF-CARE
== END 2023-04-25 11:10 | disposition home or self-care (01) | DRG 247 ==
LOC: EC 16:04 → 6NMEDSUR 19:18 → OBSVTOIN 19:19 → 6NMEDSUR 20:01
PROVIDERS: ADMIT Hospitalist; ATTEND Hospitalist
PROC: B2111ZZ Fluoroscopy of Multiple Coronary Arteries using Low Osmolar Contrast (ICD-10-PCS; 2023-04-24)
PROC: B240ZZ3 Ultrasonography of Single Coronary Artery, Intravascular (ICD-10-PCS; 2023-04-24)
PROC: 027034Z Dilation of Coronary Artery, One Artery with Drug-eluting Intraluminal Device, Percutaneous Approach (ICD-10-PCS; principal; 2023-04-24 10:30)
PROC: 4A023N7 Measurement of Cardiac Sampling and Pressure, Left Heart, Percutaneous Approach (ICD-10-PCS; 2023-04-24 10:30)
DX: T82.855A Stenosis of coronary artery stent, initial encounter (principal); I25.110 Atherosclerotic heart disease of native coronary artery with unstable angina pectoris; K31.1 Adult hypertrophic pyloric stenosis; I11.9 Hypertensive heart disease without heart failure; J01.80 Other acute sinusitis; E78.5 Hyperlipidemia, unspecified; K21.9 Gastro-esophageal reflux disease without esophagitis; R03.1 Nonspecific low blood-pressure reading; H91.90 Unspecified hearing loss, unspecified ear; M19.90 Unspecified osteoarthritis, unspecified site; N40.0 Benign prostatic hyperplasia without lower urinary tract symptoms; J06.9 Acute upper respiratory infection, unspecified; Y71.1 Therapeutic (nonsurgical) and rehabilitative cardiovascular devices associated with adverse incidents; Z20.822 Contact with and (suspected) exposure to COVID-19; Z87.891 Personal history of nicotine dependence; Z79.82 Long term (current) use of aspirin; Z79.899 Other long term (current) drug therapy; Z91.048 Other nonmedicinal substance allergy status; Z95.0 Presence of cardiac pacemaker; Z95.5 Presence of coronary angioplasty implant and graft; Z87.19 Personal history of other diseases of the digestive system; Z82.49 Family history of ischemic heart disease and other diseases of the circulatory system
CPT/HCPCS: 36415; 71046; 78452; 80048; 80053; 83036; 83690; 83735; 83880; 84484; 85025; 85610; 85730; 87636; 93005; 93017; 93306; 93458; 96374; 99291

== ENCOUNTER → 2023-09-16 | Outpatient (CLI) | payer MEDICARE ==
[2023-09-16 15:03] LABS: ALT 13 U/L (10-49); AST 14 U/L (14-35); Albumin 4.5 g/dL (3.8-4.9); Albumin/Globulin Ratio 1.88 Ratio (1.60-3.17); Alkaline Phosphatase 58 U/L (41-126); BUN/Creat Ratio 20.31 Ratio (12.00-20.00); Blood Urea Nitrogen 26.4 mg/dL (9.0-27.0); Calcium 9.6 mg/dL (8.7-10.3); Carbon Dioxide 27.1 mmol/L (21.6-31.8); Chloride 110 mmol/L (96-109); Chol/HDL Ratio 3.36 Ratio; Globulin 2.4 g/dL (1.6-3.3); Glucose 112 mg/dL (70-110); LDL Cholesterol,Calculated 94.1 mg/dL (0.0-131.0); Potassium 4.5 mmol/L (3.5-5.5); Sodium 147 mmol/L (135-145); Total Bilirubin 0.3 mg/dL (0.3-1.2); Total Protein 6.9 g/dL (6.2-8.2); VLDL Calculation 12.66 mg/dL (5.00-40.00)
== END | disposition home or self-care (01) ==
LOC: LABWHC1 08:45
PROVIDERS: ATTEND Internal Medicine Interventional Cardiology
DX: E78.2 Mixed hyperlipidemia (principal)
CPT/HCPCS: 36415; 80053; 80061

== ENCOUNTER 2023-10-29 19:58 | Emergency (ER) | payer MEDICARE ==
[2023-10-29 20:07] VITALS: BP 149/82; PULSE 76; TEMP 97.7
--- NOTE | 2023-10-29 20:19 | ED ---
General Adult HPI - General Chief complaint: Burn/Smoke Inhalation Stated complaint: rt middle finger burn Time Seen by Provider: 10/29/23 20:03 Source: patient Mode of arrival: ambulatory Limitations: no limitations - History of Present Illness Initial comments: 83-year-old male present with chief complaint of burn to the right middle finger. Patient accidentally touched a hot oven this evening. He has a small forming blister to the distal end of the right middle finger. He has no other injuries. He has full range of motion of the hand and fingers. - Related Data Home Medications Medication Instructions Recorded Confirmed Aspirin [Adult Low Dose Aspirin EC] 81 mg PO DAILY 10/18/16 04/21/23 Rosuvastatin Calcium [Crestor] 5 mg PO Q48H 03/01/17 04/21/23 Previous Rx's Medication Instructions Recorded Clopidogrel [Plavix] 75 mg PO DAILY #30 tab 04/25/23 Dapagliflozin Propanediol [Farxiga] 10 mg PO DAILY #30 tablet 04/25/23 Fluticasone Nasal [place] [Flonase 2 spray EA NOSTRIL DAILY ml 04/25/23 Nasal [place]] Loratadine [Claritin] 5 mg PO DAILY #0 tab 04/25/23 Metoprolol Tartrate [Lopressor] 25 mg PO BID #60 tab 04/25/23 Nitroglycerin Sl Tabs [Nitrostat] 0.4 mg SUBLINGUAL Q5M PRN #20 tab 04/25/23 lisinopriL [Zestril] 5 mg PO BID #60 tab 04/25/23 Allergies Allergy/AdvReac Type Severity Reaction Status Date / Time cat dander Allergy Cough Verified 04/21/23 18:28 Review of Systems ROS Statement: Those systems with pertinent positive or pertinent negative responses have been documented in the HPI. ROS Other: All systems not noted in ROS Statement are negative. Past Medical History Past Medical History: Chest Pain / Angina, Eye Disorder, GERD/Reflux, Hearing Disorder / Deafness, Hyperlipidemia, Hypertension, Osteoarthritis (OA), Prostate Disorder Additional Past Medical History / Comment(s): 12/20/20 EGD showed small hiatal hernia/esophageal stricture/esophagitis, dysphagia, pyloric stenosis/surgery, BPH, bilateral hand arthritis, L ear tinnitis, bilateral eye surgery for glaucoma. History of Any Multi-Drug Resistant Organisms: None Reported Past Surgical History: Bowel Resection, Heart Catheterization With Stent, Pacemaker Additional Past Surgical History / Comment(s): 12/20/20 EGD for FB removal, bowel surgery as for rerouting, surgery for pyloric stenosis pt states as an adult, colonoscopies, 2007 PCI with stent, 2018 pacer insertion at [facility], bilateral eye surgery for glaucoma. Past Anesthesia/Blood Transfusion Reactions: No Reported Reaction Date of Last Stent Placement:: 2007 Type of Cardiac Device: Permanent Pacemaker Device Placement Date:: 2017 Past Psychological History: No Psychological Hx Reported Smoking Status: Former smoker Past Alcohol Use History: None Reported Past Drug Use History: None Reported - Past Family History Mother Family Medical History: Myocardial Infarction ([place]) Additional Family Medical History / Comment(s): Mother of a [place] in her 70s. Father Family Medical History: Cancer Additional Family Medical History / Comment(s): Father of lung cancer. He was a smoker. General Exam Limitations: no limitations General appearance: alert, in no apparent distress Head exam: Present: atraumatic, normocephalic Eye exam: Present: normal appearance Neck exam: Present: normal inspection Respiratory exam: Absent: respiratory distress Cardiovascular Exam: Present: regular rate Neurological exam: Present: alert, oriented X3 Psychiatric exam: Present: normal affect, normal mood Skin exam: Present: erythema (2nd degree burn with blister forming to the distal end of the right middle finger.) Course Vital Signs 10/29/23 10/29/23 19:59 20:48 Temperature 97.7 F Pulse Rate 76 Respiratory 18 16 Rate Blood Pressure 149/82 O2 Sat by Pulse 98 Oximetry Medical Decision Making - Medical Decision Making Was pt. sent in by a medical professional or institution (, PA, [employer], urgent care, hospital, or custodial...) When possible be specific @ -No Did you speak to anyone other than the patient for history (EMS, parent, family, police, friend...)? What history was obtained from this source @ -No Did you review nursing and triage notes (agree or disagree)? Why? @ -I reviewed and agree with nursing and triage notes Were old charts reviewed (outside hosp., previous admission, EMS record, old EKG, old radiological studies, urgent care reports/EKG's, custodial records)? Report findings @ -No old charts were reviewed Differential Diagnosis (chest pain, altered mental status, abdominal pain women, abdominal pain men, vaginal bleeding, weakness, fever, dyspnea, syncope, headache, dizziness, GI bleed, back pain, seizure, CVA, palpatations, mental health, musculoskeletal)? @ -Differential includes first-degree burn, second-degree burn, third-degree burn EKG interpreted by me (3pts min.). @ -As above X-rays interpreted by me (1pt min.). @ -None done CT interpreted by me (1pt min.). @ -None done U/S interpreted by me (1pt. min.). @ -None done What testing was considered but not performed or refused? (CT, X-rays, U/S, labs)? Why? @ -None What meds were considered but not given or refused? Why? @ -None Did you discuss the management of the patient with other professionals (professionals i.e. , PA, [employer] DEVELOPER, lab, RT, psych nurse, home health care social worker, track grinder, teacher, detention officer, window caser)? Give summary @ -No Was smoking cessation discussed for >3mins.? @ -No Was critical care preformed (if so, how long)? @ -No Were there social determinants of health that impacted care today? How? (Home lessness, low income, unemployed, alcoholism, drug addiction, transportation, low edu. Level, literacy, decrease access to med. care, longterm, rehab)? @ -No Was there de-escalation of care discussed even if they declined (Discuss DNR or withdrawal of care, Hospice)? DNR status @ -No What co-morbidities impacted this encounter? (DM, HTN, Smoking, COPD, CAD, Cancer, CVA, ARF, Chemo, Hep., AIDS, mental health diagnosis, sleep apnea, morbid obesity)? @ -None Was patient admitted / discharged? Hospital course, mention meds given and route, prescriptions, significant lab abnormalities, going to OR and other pertinent info. @ -83-year-old male presenting with chief complaint of burn to the right middle finger. He touched it to a hot oven. He has a pea-sized forming blister near the end of the finger. This only affects the distal tip of the finger, no pain or involvement to proximal portion. Provided with bacitracin ointment and materials for dressing changes, wound dressed here in the ER. Apply bacitracin ointment twice daily. Discharged home. Follow-up with PCP. Report back to ER with any new or worsening symptoms. Discussed return parameters and answered all questions. Patient conveyed verbal understanding and agreed to the plan. I discussed this case in detail with my attending Dr. Viveros Undiagnosed new problem with uncertain prognosis? @ -No Drug Therapy requiring intensive monitoring for toxicity (Heparin, Nitro, Insulin, Cardizem)? @ -No Were any procedures done? @ -No Diagnosis/symptom? @ -Secondary burn Acute, or Chronic, or Acute on Chronic? @ -Acute Uncomplicated (without systemic symptoms) or Complicated (systemic symptoms)? @ -Uncomplicated Side effects of treatment? @ -No Exacerbation, Progression, or Severe Exacerbation? @ -No Poses a threat to life or bodily function? How? (Chest pain, [place], [place], pneumonia, PE, COPD, DKA, ARF, appy, cholecystitis, CVA, Diverticulitis, Homicidal, Suicidal, threat to staff... and all critical care pts) @ -No Disposition Clinical Impression: 2nd degree burn Disposition: HOME SELF-CARE Condition: Good Instructions (If sedation given, give patient instructions): Second-Degree Burn (ED) Additional Instructions: Apply antibiotic ointment and change dressing 2 times daily. Report back to ER with any new or worsening symptoms. Follow-up with your PCP. Is patient prescribed a controlled substance at d/c from ED?: No Referrals: Suzanne Whelan MD [Primary Care Provider] - 1-2 days Time of Disposition: 20:40
[2023-10-29] MEDS: BACITRACIN ZINC 500 UNIT/GM OINT 28.4 GM TUBE TOPICAL ONE (20:34)
[2023-10-29] MEDS: BACITRACIN OINT 1 EACH PACKET TOPICAL ONE (20:34)
[2023-10-29 21:06] VITALS: RESP 16
== END 2023-10-29 20:48 | disposition home or self-care (01) ==
LOC: EC 19:58
DX: T23.221A Burn of second degree of single right finger (nail) except thumb, initial encounter (principal); E78.5 Hyperlipidemia, unspecified; I10 Essential (primary) hypertension; Z87.891 Personal history of nicotine dependence; Z79.899 Other long term (current) drug therapy; Z88.8 Allergy status to other drugs, medicaments and biological substances; Z79.82 Long term (current) use of aspirin; X19.XXXA Contact with other heat and hot substances, initial encounter
CPT/HCPCS: 16020; 99283

== ENCOUNTER 2024-02-22 17:16 | Emergency (ER) | payer MEDICARE ==
[2024-02-22 17:32] VITALS: TEMP 98.4
--- NOTE | 2024-02-22 18:02 | ED ---
Wound/Laceration HPI - General Chief Complaint: Wound/Laceration Stated Complaint: R wrist injury Time Seen by Provider: 02/22/24 17:31 Source: patient, RN notes reviewed Mode of arrival: ambulatory Limitations: no limitations - History of Present Illness Initial Comments: This is an 83-year-old male who presents to the emergency department chief complaint of right wrist injury. He states that he was at home roughly 3 days ago when he tripped on his carpet injuring his right wrist on a side table. Patient denies hitting his head or loss of consciousness at the time of this injury. He states that he attempted to clean his wrist at home by himself and is applied Band-Aids over the area. States that he did not do a good job cleaning up the wound would like further evaluation. He denies pain of the wrists or loss of mobility. denies use of blood thinners. - Related Data Home Medications Medication Instructions Recorded Confirmed Aspirin [Adult Low Dose Aspirin EC] 81 mg PO DAILY 10/18/16 04/21/23 Rosuvastatin Calcium [Crestor] 5 mg PO Q48H 03/01/17 04/21/23 Previous Rx's Medication Instructions Recorded Clopidogrel [Plavix] 75 mg PO DAILY #30 tab 04/25/23 Dapagliflozin Propanediol [Farxiga] 10 mg PO DAILY #30 tablet 04/25/23 Fluticasone Nasal [place] [Flonase 2 spray EA NOSTRIL DAILY ml 04/25/23 Nasal [place]] Loratadine [Claritin] 5 mg PO DAILY #0 tab 04/25/23 Metoprolol Tartrate [Lopressor] 25 mg PO BID #60 tab 04/25/23 Nitroglycerin Sl Tabs [Nitrostat] 0.4 mg SUBLINGUAL Q5M PRN #20 tab 04/25/23 lisinopriL [Zestril] 5 mg PO BID #60 tab 04/25/23 Allergies Allergy/AdvReac Type Severity Reaction Status Date / Time cat dander Allergy Cough Verified 02/22/24 17:32 Review of Systems ROS Statement: Those systems with pertinent positive or pertinent negative responses have been documented in the HPI. ROS Other: All systems not noted in ROS Statement are negative. Past Medical History Past Medical History: Chest Pain / Angina, Eye Disorder, GERD/Reflux, Hearing Disorder / Deafness, Hyperlipidemia, Hypertension, Osteoarthritis (OA), Prostate Disorder Additional Past Medical History / Comment(s): 12/20/20 EGD showed small hiatal hernia/esophageal stricture/esophagitis, dysphagia, pyloric stenosis/surgery, BPH, bilateral hand arthritis, L ear tinnitis, bilateral eye surgery for glaucoma. History of Any Multi-Drug Resistant Organisms: None Reported Past Surgical History: Bowel Resection, Heart Catheterization With Stent, Pacemaker Additional Past Surgical History / Comment(s): 12/20/20 EGD for FB removal, bowel surgery as for rerouting, surgery for pyloric stenosis pt states as an adult, colonoscopies, 2007 PCI with stent, 2018 pacer insertion at [facility], bilateral eye surgery for glaucoma. Past Anesthesia/Blood Transfusion Reactions: No Reported Reaction Date of Last Stent Placement:: 2007 Type of Cardiac Device: Permanent Pacemaker Device Placement Date:: 2017 Past Psychological History: No Psychological Hx Reported Smoking Status: Former smoker Past Alcohol Use History: None Reported Past Drug Use History: None Reported - Past Family History Mother Family Medical History: Myocardial Infarction ([place]) Additional Family Medical History / Comment(s): Mother of a [place] in her 70s. Father Family Medical History: Cancer Additional Family Medical History / Comment(s): Father of lung cancer. He was a smoker. General Exam Limitations: no limitations General appearance: alert, in no apparent distress Head exam: Present: atraumatic, normocephalic, normal inspection Eye exam: Present: normal appearance, PERRL, EOMI. Absent: scleral icterus, conjunctival injection, periorbital swelling ENT exam: Present: normal exam, mucous membranes moist Neck exam: Present: normal inspection. Absent: tenderness, meningismus, lymphadenopathy Respiratory exam: Present: normal lung sounds bilaterally. Absent: respiratory distress, wheezes, rales, rhonchi, stridor Cardiovascular Exam: Present: regular rate, normal rhythm, normal heart sounds. Absent: systolic murmur, diastolic murmur, rubs, gallop, clicks GI/Abdominal exam: Present: soft, normal bowel sounds. Absent: distended, tenderness, guarding, rebound, rigid Right Hand Wrist exam: Present: full ROM, tenderness (lateral), abrasion (3 abrasions/skin avulsions, no active bleeding or purulence noted). Absent: laceration, ecchymosis, deformity, crepitus, dislocation Back exam: Present: normal inspection Neurological exam: Present: alert, oriented X3, CN II-XII intact Course Vital Signs 02/22/24 17:27 Temperature 98.4 F Pulse Rate 64 Respiratory 17 Rate Blood Pressure 135/77 O2 Sat by Pulse 98 Oximetry Medical Decision Making - Medical Decision Making Was pt. sent in by a medical professional or institution ([facility] Hidalgo, [facility] [employer], urgent care, hospital, or custodial...) When possible be specific @ -No Did you speak to anyone other than the patient for history (EMS, parent, family, police, friend...)? What history was obtained from this source @ -No Did you review nursing and triage notes (agree or disagree)? Why? @ -I reviewed and agree with nursing and triage notes Were old charts reviewed (outside hosp., previous admission, EMS record, old EKG, old radiological studies, urgent care reports/EKG's, custodial records)? Report findings @ -No old charts were reviewed Differential Diagnosis (chest pain, altered mental status, abdominal pain women, abdominal pain men, vaginal bleeding, weakness, fever, dyspnea, syncope, heada duglas, dizziness, GI bleed, back pain, seizure, CVA, palpatations, mental health, musculoskeletal)? @ -Laceration, skin avulsion, wrist injury, this list is not all inclusive. EKG interpreted by me (3pts min.). @ -none X-rays interpreted by me (1pt min.). @ -None done CT interpreted by me (1pt min.). @ -None done U/S interpreted by me (1pt. min.). @ -None done What testing was considered but not performed or refused? (CT, X-rays, U/S, labs)? Why? @ -None What meds were considered but not given or refused? Why? @ -None Did you discuss the management of the patient with other professionals (mera mendoza i.e. [facility] Hidalgo, [facility], lab, RT, psych nurse, social media marketer, form tamper, teacher, enforcement officer, upper caser)? Give summary @ -No Was smoking cessation discussed for >3mins.? @ -No Was critical care preformed (if so, how long)? @ -No Were there social determinants of health that impacted care today? How? (Homelessness, low income, unemployed, alcoholism, drug addiction, transportation, low edu. Level, literacy, decrease access to med. care, usp, rehab)? @ -No Was there de-escalation of care discussed even if they declined (Discuss DNR or withdrawal of care, Hospice)? DNR status @ -No What co-morbidities impacted this encounter? (DM, HTN, Smoking, COPD, CAD, Cancer, CVA, ARF, Chemo, Hep., AIDS, mental health diagnosis, sleep apnea, morbid obesity)? @ -None Was patient admitted / discharged? Hospital course, mention meds given and route, prescriptions, significant lab abnormalities, going to OR and other pertinent info. @ -Discharge. 83-year-old male with 3 skin avulsions to the right wrist. Area was cleansed and mupirocin ointment applied over and gauze wrapped around the area. Patient was instructed to apply topical mupirocin over the affected areas 1 time a day for the next 5 to 7 days. Patient is stable for discharge. Case discussed with Dr. Nevarez Undiagnosed new problem with uncertain prognosis? @ -No Drug Therapy requiring intensive monitoring for toxicity (Heparin, Nitro, Insulin, Cardizem)? @ -No Were any procedures done? @ -No Diagnosis/symptom? @ -Skin avulsion Acute, or Chronic, or Acute on Chronic? @ -Acute Uncomplicated (without systemic symptoms) or Complicated (systemic symptoms)? @ -Uncomplicated Side effects of treatment? @ -No Exacerbation, Progression, or Severe Exacerbation? @ -No Poses a threat to life or bodily function? How? (Chest pain, [place], [place], pneumonia, PE, COPD, DKA, ARF, appy, cholecystitis, CVA, Diverticulitis, Homicidal, Suicidal, threat to staff... and all critical care pts) @ -No Disposition Clinical Impression: Skin avulsion Disposition: HOME SELF-CARE Condition: Good Instructions (If sedation given, give patient instructions): Skin Avulsion (ED) Additional Instructions: Return the emergency department if symptoms worsen or not improved. Continue to use topical antibiotic ointment once a day over the affected area. Keep area clean and dry. Is patient prescribed a controlled substance at d/c from ED?: No Referrals: Suzanne Whelan MD [Primary Care Provider] - 1-2 days Time of Disposition: 18:55
[2024-02-22] MEDS: MUPIROCIN 2% OINT 22 GM TUBE TOPICAL STA (18:49)
[2024-02-22 19:19] VITALS: BP 132/75; PULSE 82; RESP 16
== END 2024-02-22 19:15 | disposition home or self-care (01) ==
LOC: EC 17:16
DX: S61.501A Unspecified open wound of right wrist, initial encounter (principal); Z87.891 Personal history of nicotine dependence; Z91.048 Other nonmedicinal substance allergy status; W01.0XXA Fall on same level from slipping, tripping and stumbling without subsequent striking against object, initial encounter
CPT/HCPCS: 99283

== ENCOUNTER → 2024-06-09 | Outpatient (CLI) | payer MEDICARE ==
--- NOTE | 2024-06-09 10:39 | CT ---
EXAMINATION TYPE: CT chest wo con CT DLP: 188.4 mGycm, Automated exposure control for dose reduction was used. DATE OF EXAM: 06/09/2024 10:27 AM COMPARISON: CT chest 10/11/2022 CLINICAL INDICATION:Male, 83 years old with history of R91.8 pulmonary nodule; PHH, pulmonary nodule. TECHNIQUE: Multiple axial images were obtained through the chest without IV contrast. Lack of IV or o ral contrast limits evaluation of solid and hollow organ viscera. . Coronal and sagittal reformats re viewed. FINDINGS: LUNGS/ PLEURA: No pleural effusion, pneumothorax, focal consolidation. Similar strandy scarring as we ll as mild interstitial fibrosis within the lung bases. Mild emphysematous change. Stable 3 mm right upper lobe subpleural pulmonary nodule (series 4, image 19). Stable 3 mm anterior right midlung subpl eural pulmonary nodule (series 4, image 37). No new or enlarging pulmonary nodules. AIRWAY: Patent and unremarkable.. HEART: Mildly enlarged. No pericardial effusion. LAD and circumflex coronary calcifications are prese nt. MEDIASTINUM: No gross evidence of adenopathy. VASCULATURE: No aortic aneurysm. MUSCULOSKELETAL: No acute osseous abnormalities. Accentuated mid thoracic kyphosis. Stable chronic an terior wedge compression deformity of the T4 vertebral body. SOFT TISSUES/LYMPH NODES: Left anterior chest wall pacemaker generator with right atrial and right ve ntricular leads redemonstrated. Bilateral gynecomastia. LOWER NECK: No significant findings. UPPER ABDOMEN: Postsurgical changes at the GE junction again. Multiple stable lines related to prior bowel surgery visualized of the upper abdomen again. 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 Promine nt left extra renal pelvis. IMPRESSION: 1. Stable couple of 3 mm pulmonary nodules. No new or enlarging pulmonary nodules. Considered benign. 2. 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 3. LAD and circumflex coronary artery calcifications are demonstrated. 4. Stable left adrenal lipid rich adenoma. [facility], , 06/09/2024 10:36 AM
== END | disposition home or self-care (01) ==
LOC: RADCTMAIN 10:09
PROVIDERS: ATTEND Family Medicine
CPT/HCPCS: 71250

== ENCOUNTER → 2024-12-02 | Outpatient (CLI) | payer MEDICARE ==
[2024-12-02 14:57] LABS: HCT 46.6 % (39.6-50.0); HGB 14.6 g/dL (13.0-17.0); MCH 30.2 pg (27.0-32.0); MCHC 31.3 g/dL (32.0-37.0); MCV 96.5 FL (80.0-97.0); Mean Platelet Volume 12.5 FL (9.5-12.2); NRBC Per 100 WBC 0 X 10*3/uL (0.00-0.01); Platelet Count 132 X 10*3/uL (140-440); RBC 4.83 X 10*6/uL (4.40-5.60); RDW 13.2 % (11.5-14.5)
[2024-12-02 15:13] LABS: ALT 13 U/L (10-49); AST 18 U/L (14-35); Albumin 4.3 g/dL (3.8-4.9); Albumin/Globulin Ratio 1.72 Ratio (1.60-3.17); Alkaline Phosphatase 59 U/L (41-126); Blood Urea Nitrogen 21.1 mg/dL (9.0-27.0); Calcium 9.4 mg/dL (8.7-10.3); Carbon Dioxide 25.8 mmol/L (21.6-31.8); Chloride 107 mmol/L (96-109); Chol/HDL Ratio 3.71 Ratio; Globulin 2.5 g/dL (1.6-3.3); Glucose 138 mg/dL (70-110); Potassium 4.7 mmol/L (3.5-5.5); Sodium 142 mmol/L (135-145); Total Bilirubin 0.3 mg/dL (0.3-1.2); Total Protein 6.8 g/dL (6.2-8.2); VLDL Calculation 19.08 mg/dL (5.00-40.00)
== END | disposition home or self-care (01) ==
LOC: LABWHC1 09:34
PROVIDERS: ATTEND Internal Medicine Interventional Cardiology
DX: I10 Essential (primary) hypertension (principal); E78.2 Mixed hyperlipidemia
CPT/HCPCS: 36415; 80053; 80061; 85027